=== PATIENT | male | born 1965 | race Caucasian/White ===

== ENCOUNTER 2018-05-18 06:49 | Day surgery (SDC) | payer OTHER, SELFPAY ==
--- NOTE | 2018-05-18 | PATH_ITS ---
[facility] Accession Number: [id number] . 01 Material submitted: . COLON POLYP AT 25 CM . 02 Diagnosis: Colon Polyp at 25 cm: Hyperplastic polyp. MRV/05/19/2018 . 02 Electronically signed: . Janes Arteaga MD, PhD, Pathologist NPI- [id number] . 01 Gross description: . Received one formalin-filled container labeled with the patient's name and labeled colon polyp at 25 cm. The specimen consists of a 0.2 cm portion of tissue. Entirely submitted in one cassette. ([facility]:[id number]) /[facility] . 02 Pathologist provided ICD-10: K63.5 . 02 CPT . 590834 Performed at: 01 [facility] [address] [id number] MD Sriram Colindres MD Phone: [phone] Performed at: 02 [facility] [address] [place], [place] [id number] MD Bartolo Sanchez MD Phone: [phone]
[2018-05-18 07:23] VITALS: BP 132/83; PULSE 51; RESP 12; TEMP 35.9; O2SAT 99
[2018-05-18] MEDS: SODIUM CHLORIDE 0.9% 1,000 ML 200 ML IV (08:00)
--- NOTE | 2018-05-18 08:06 | PM.PREOP ---
Pre-operative Note Interval Note Pre-op Check: Yes History & Physical Reviewed by Physician and Yes Exam Performed Changes: No ASA Class (for procedural sedation): II
[2018-05-18] MEDS: MIDAZOLAM 5 MG/5 ML VIAL IV (08:33)
[2018-05-18] MEDS: fentaNYL 250 MCG/5 ML INJ IV (08:34)
--- NOTE | 2018-05-18 08:47 | PM.OP.ENDO ---
Operative Date/Time/Diagnoses Date of procedure: 05/18/18 Time of procedure: 08:47 Pre-op diagnosis: Screening colonoscopy. This is his 1st exam. Post-op diagnosis: same (One small polyp like lesion at 25 cm) Procedure & Clinicians Study performed: Colonoscopy with cold biopsy Same procedure as scheduled: Yes Indications: Screening due to age Surgeon: Kenny Ba Procedure Notes SCOAP/Timeout: Performed Procedure in detail: The patient was placed in the left lateral decubitus position and underwent IV sedation directed by the surgeon consisting of fentanyl and Versed. Digital exam was remarkable for a firm moderately enlarged prostate without dominant mass. The scope was inserted and advanced through the rectum into the sigmoid, descending, transverse, and ascending colon. There was some tortuosity but otherwise no lesions were seen. The cecum was reached identified by the ileocecal valve and the appendiceal opening. The ileocecal valve was successfully cannulated. The terminal ileum was normal in appearance. The scope was gradually brought out. A Polyp was found at 25 cm from the anal verge. This was small and flat. It may represent a nonneoplastic process. The scope ultimately was retroflexed in the rectum. The appearance was[normal]. The scope was removed and the patient tolerated the procedure well Scope withdrawal time: Almost 17 min Sedation minutes: 33 Findings: polyp (At 25 cm) Specimen(s): other (Polyp) Complications: none Recommendations: Colonscopy in 5 years (Unless polyp is not neoplastic. Then 10 years.) Plan for aftercare: Will send letter regarding pathology Follow up: as needed Disposition: PACU
[2018-05-18 08:50] VITALS: BP 110/75; PULSE 62; RESP 14; TEMP 36.4; O2SAT 99
[2018-05-18 08:55] VITALS: BP 111/74; PULSE 62; RESP 16; TEMP 36.4; O2SAT 98
[2018-05-18 09:03] VITALS: BP 109/73; PULSE 58; RESP 17; TEMP 36.4; O2SAT 99
== END 2018-05-18 09:10 | disposition home or self-care (01) ==
PROVIDERS: Family Provider Family Medicine; PCP Family Medicine; Visit Provider Specialist
PROC: 0DJD8ZZ Inspection of Lower Intestinal Tract, Via Natural or Artificial Opening Endoscopic (ICD-10-PCS; CPT 45378; principal; 2018-05-18 07:45)
DX: Z12.11 Encounter for screening for malignant neoplasm of colon (principal); N40.0 Benign prostatic hyperplasia without lower urinary tract symptoms; E11.9 Type 2 diabetes mellitus without complications; Z79.84 Long term (current) use of oral hypoglycemic drugs; K63.5 Polyp of colon
CPT/HCPCS: 45380; 99152; 99153; J2250; J3010

== ENCOUNTER → 2022-08-12 07:19 | Outpatient (CLI) | payer OTHER, SELFPAY ==
--- NOTE | 2022-08-12 | DI.US.S_ITS ---
PROCEDURE: US EXTREMELY NONVASC UPPER RT INDICATIONS: MASS ON RIGHT SHOULDER TECHNIQUE: Real-time scanning was performed of the left shoulder region , with image documentation. COMPARISON: None. FINDINGS: Imaging finding shows a 1.7 x 1.7 x 0.5 cm mildly hypoechoic solid lesion in the area of palpable abnormality. This may represent a lipoma however I would recommend an MRI through this region with and without intravenous gadolinium for further characterization. IMPRESSION: 1.7 cm ovoid hypoechoic lesion in the area of palpable abnormality in the left shoulder region. Given the imaging findings I would recommend an MRI through this region with and without intravenous gadolinium for further characterization. Dictated by: Jean Marie Desai M.D. on 08/13/2022 at 14:19 Approved by: Jean Marie Desai M.D. on 08/13/2022 at 14:22
== END ==
PROVIDERS: Family Provider Family Medicine; PCP Family Medicine; Referring Provider Family Medicine; Visit Provider Family Medicine
DX: M25.811 Other specified joint disorders, right shoulder (principal)
CPT/HCPCS: 76882

== ENCOUNTER → 2022-09-03 13:42 | Outpatient (CLI) | payer OTHER, SELFPAY ==
--- NOTE | 2022-09-03 | DI.MRI.S_ITS ---
PROCEDURE: MR SHOULDER RT WO/W CON INDICATIONS: RIGHT SHOULDER MASS TECHNIQUE: Noncontrast oblique coronal T1 spin echo and T2 fast spin echo with fat saturation, oblique sagittal T1 spin echo and T2 fast spin echo with fat saturation, axial T1 spin echo and T2 fast spin echo with fat saturation through the shoulder. Post-contrast oblique coronal, oblique sagittal, and axial T1 spin echo with fat saturation through the shoulder. COMPARISON: [facility], US, US EXTREMELY NONVASC UPPER RT, 08/12/2022, 7:25. FINDINGS: Image quality: Excellent. Rotator cuff: There is full-thickness rupture of anterior fibers of distal supraspinatus at its insertion on the humeral head with up to 2.7 cm medial retraction of torn tendon fibers to the level of acromion. Distal infraspinatus tendon is intact. Distal subscapularis tendinosis is seen. Sagittal images demonstrate mild to moderate supraspinatus muscle atrophy. Bones and bursae: No suspicious bone marrow enhancement. No bone marrow contusions or fractures. Moderate acromioclavicular joint osteoarthritic changes are seen with joint space narrowing, subchondral sclerosis and downward osteophyte formation depressing on musculotendinous junction of supraspinatus. Mild to moderate glenohumeral joint osteoarthritic changes are also seen. There is small amount of subacromial subdeltoid bursal fluid. Capsule and soft tissues: Fiducial marker is placed in right lateral lower neck. A lobulated fairly homogeneously T1 hypointense and T2 hyperintense structure is seen within subcutaneous soft tissue of right lateral neck superficial to the muscle fibers and measures up to 1.1 x 1.3 x 2.1 cm in size. After contrast infusion, there is homogeneous enhancement within this lesion. No other area of abnormal enhancement is seen. Signal abnormality and contour irregularity involving superior anterior labrum at 12 to 2 o'clock position is seen suggestive of proximal labral tear. The long head of the biceps tendon demonstrates normal location and morphology. The rotator interval appears normal, without fibrosis. The coracohumeral ligament is normal in thickness. IMPRESSION: 1. 1.1 x 1.3 x 2.1 cm oval enhancing soft tissue mass in subcutaneous soft tissue along right lateral lower neck without underlying muscle involvement. Finding could represent a benign or malignant soft tissue neoplasm suggest excision or biopsy of the mass for more definitive diagnosis. 2. Full-thickness rupture involving anterior fibers of distal supraspinatus at its insertion on the humeral head with up to 2.7 cm medial retraction of torn tendon fibers to the level of acromion. Mild to moderate supraspinatus muscle atrophy. Distal subscapularis tendinosis. 3. No abnormal intraosseous enhancement. No suspicious bony lesion. Moderate acromioclavicular joint osteoarthritis and [id number] glenohumeral joint osteoarthritis. No fracture or dislocation. 4. Suggestion of extensive superior anterior labral tear at 12 to 2 o'clock position. Dictated by: Chava Nice M.D. on 09/04/2022 at 10:43 Approved by: Chava Nice M.D. on 09/04/2022 at 11:08
== END ==
PROVIDERS: Family Provider Family Medicine; PCP Family Medicine; Referring Provider Family Medicine; Visit Provider Family Medicine
DX: R22.1 Localized swelling, mass and lump, neck (principal); M75.121 Complete rotator cuff tear or rupture of right shoulder, not specified as traumatic; M19.011 Primary osteoarthritis, right shoulder; M25.811 Other specified joint disorders, right shoulder
CPT/HCPCS: 73223; A9579

== ENCOUNTER 2022-12-26 10:44 | Day surgery (SDC) | payer OTHER, SELFPAY ==
[2022-12-18 12:28] VITALS: BMI 30.2
--- NOTE | 2022-12-26 | PATH_ITS ---
[facility] Accession Number: [id number] No. of containers..01 Tissue . 01 Material submitted: . neck - RIGHT NECK MASS . 01 Diagnosis: Right Neck, Excision: Fragments of fibrous and mature adipose tissue consistent with lipoma. MRV 12/30/2022 1401 Local . 01 Electronically signed: . Kat Harrell MD, Dermatopathologist NPI- [id number] . 01 Gross description: . The specimen is received in formalin labeled with the patient's name, , and right neck mass, and consists of three yellow to brown soft tissue fragments. The first measures 1.5 x 1.0 x 1.0 cm and is inked blue. The second fragment measures 1.4 x 1.0 x 0.9 cm and is inked green. The third fragment measures 0.8 x 0.7 x 0.5 cm and is inked black. Sectioning reveals a yellow to pink, soft cut surface with no discrete lesions identified. The specimen is submitted entirely in cassettes A1-A2. ([id number]) /FRR 12/27/2022 1342 Local . 01 Pathologist provided ICD-10: D17.9 . 01 CPT . 525708 Specimen Comment: A courtesy copy of this report has been sent to [phone] Performed at: 01 [facility] [address] [place] [id number] MD Sriram Colindres MD Phone: [phone]
[2022-12-26 11:08] VITALS: BP 143/76; PULSE 57; RESP 16; TEMP 36.3; O2SAT 98; BMI 30.2
[2022-12-26] MEDS: LACTATED RINGERS 1,000 ML 42 ML IV (11:18)
--- NOTE | 2022-12-26 12:26 | PM.PREOP ---
Pre-operative Note Interval Note History & Physical reviewed/Exam performed by Physician: Yes Changes to H&P: No
[2022-12-26] MEDS: CEFAZOLIN 2 GM/100 ML PREMIX 100 ML IV (12:42)
[2022-12-26] MEDS: BUPIVACAINE 0.25% (PF) VIAL 30 ML INJ (12:51)
--- NOTE | 2022-12-26 12:59 | SUR.OPER ---
Lateral on a love bag, head on pillow, gel axillary roll in place, bottom leg bent with gel pad under knee to foot, upper leg straight and supported with pillows. Upper arm supported by pillows and secured over bottom arm to padded arm board. Safety belt at hip, tape over blanket lower legs.
[2022-12-26 13:16] VITALS: BP 134/69; PULSE 59; RESP 13; TEMP 36.2; O2SAT 98
[2022-12-26 13:20] VITALS: BP 144/66; PULSE 63; RESP 12; O2SAT 98
[2022-12-26] MEDS: ONDANSETRON 4 MG/2 ML INJ IV (13:23)
[2022-12-26 13:30] VITALS: BP 121/64; PULSE 61; RESP 20; O2SAT 98
--- NOTE | 2022-12-26 13:30 | PM.OP.1 ---
Operative Date/Time/Diagnoses Date of procedure: 12/26/22 Time of procedure: 13:31 Pre-op diagnosis: Right neck mass Post-op diagnosis: same Procedure & Clinicians Procedure: Excision of 2 cm right neck mass Same procedure as scheduled: Yes Indications: 57-year-old man with a enlarging right neck mass. MRI demonstrates enhancement of the mass and is here for diagnostic excision. Surgeon: Angel Xie Operative Notes Findings: Fatty nodule at the base of the right neck Estimated Blood Loss (mL): 5 Procedure in detail: Patient was brought to the operating room placed supine on the table. Bilateral lower extremity compression devices were applied. Sedation was administered by anesthesia. He received 2 g of Ancef prior to skin incision. He was prepped and draped in sterile fashion time-out was performed. A incision was made at the base of the right neck over the palpable mass. The subcutaneous tissue was divided. Just beneath the subcutaneous tissue and above the level of the muscle we encountered a 2 cm fatty growth which was excised in its entirety. Hemostasis was checked. A small metallic clip was placed at the base of the wound. The wound was then closed with Vicryl followed by Monocryl and Dermabond. He tolerated the procedure well emerged from sedation and was transferred to recovery in stable condition Complications: none Post-operative Condition: stable Disposition: same day surgery
== END 2022-12-26 13:47 | disposition home or self-care (01) ==
PROVIDERS: Family Provider Family Medicine; PCP Family Medicine; Referring Provider Surgery; Visit Provider Surgery
PROC: (CPT 21555; principal; 2022-12-26 12:30)
DX: D17.0 Benign lipomatous neoplasm of skin and subcutaneous tissue of head, face and neck (principal)
CPT/HCPCS: 21555; 82962; J0690; J2250; J2405; J3010

== ENCOUNTER → 2025-04-27 07:58 | Outpatient (CLI) | payer OTHER, SELFPAY ==
--- NOTE | 2025-04-27 08:00 | DI.ECHO.S_ITS ---
[facility] : : [id number] : : [place], : : [place] [id number] : : Phone: [phone] Echocardiogram Report + + :Name: PANFILO RODRIGUEZ Study Date: 04/27/2025 Height: 73 in : :[facility] ReadingLocation: Weight: 198 lb : : Gender: Male BSA: 2.1 m2 : :: 1965 Age: 59 yrs BP: 118/75 mmHg: :Reason For Study: S/P CARDIAC ARREST : :Ordering Physician: ROXANA, : :HOSEA Magaña Performed By: Eliceo Senior : :Referring: HOSEA SCHMIDT : + + Interpretation Summary 1. The left ventricular contractility is mildly compromised. Estimate ejection fraction is approximately 40 to 45% with mild hypokinesis of the lateral segment. No LVH. Normal diastolic function. 2. The right ventricular contractility is normal. 3. The left ventricular cavity is mildly dilated with LVEDD of 6.1 cm. All other cardiac chambers are of normal size. 4. Trace to mild mitral regurgitation. 5. Mild aortic insufficiency. 6. Trace to mild tricuspid regurgitation with estimated pulmonary systolic artery pressures of 31 mmHg. 7. No obvious intracardiac shunts. 8. No hemodynamically significant pericardial effusion. 9. Low right-sided filling pressures. Conclusion: Mildly compromised left ventricular systolic function with trace to mild valvular insufficiencies. When compared with previous echocardiogram, there is significant improvement of the left ventricular contractility. Procedure: A two-dimensional transthoracic echocardiogram with color flow and Doppler was performed. The study quality was technically good. Comparison is made with the echocardiogram of 02/22/25. The patient was in a bradycardic rhythm during the exam. Left Ventricle: The left ventricle is mildly dilated. There is normal left ventricular wall thickness. There is no ventricular septal defect visualized. The ejection fraction is estimated to be 40-45%. There are regional wall motion abnormalities as specified. Diastolic parameters suggest probable normal left ventricular diastolic function and normal filling pressures. Right Ventricle: The right ventricle is normal in size and function. Atria: The left atrial size is normal. The right atrium is normal in size. There is no Doppler evidence for an interatrial shunt. Mitral Valve: The mitral valve is normal in structure and function. There is trace mitral regurgitation. Aortic Valve: The aortic valve is trileaflet. The aortic valve opens well. There is mild aortic regurgitation. Tricuspid Valve: The tricuspid valve leaflets are thin and pliable. There is mild tricuspid regurgitation. The right ventricular systolic pressure is estimated to be at least 31 mmHg based on an estimated right atrial pressure of 3 mm Hg. Pulmonic Valve: The pulmonic valve leaflets are thin and pliable; valve motion is normal. There is no pulmonic valvular regurgitation. Great Vessels: The aortic root is normal size. The dimensions of the ascending aorta are normal. The pulmonary artery is normal size. The IVC is of normal diameter and collapses greater than 50% with a sniff. This suggests a low right atrial pressure of 3 mm Hg. Pericardium/ Pleura There is no pericardial effusion. There is no pleural effusion. MMode/2D Measurements & Calculations LVIDd: 6.1 cm AoV Openin.2 cm LVIDs: 4.6 cm LVOT diam: 2.5 cm IVSd: 0.80 cm Ao root diam: 3.8 cm LVPWd: 0.91 cm asc Aorta Diam: 3.3 cm LV hernandez. diameter/BSA (cm/m^2): 2.9 Ao Arch Diam (Prox Trans): 1.8 cm LV sys. diameter/BSA (cm/m^2): 2.1 FS: 24.9 % EPSS: 1.1 cm LA A2 area: 20.0 cm2 RA long axis: 5.3 cm LA A4 area: 22.5 cm2 RA area: 20.4 cm2 LA length (vol): 5.6 cm RA vol: 66.1 ml LA vol: 67.7 ml RA : 30.9 ml/m2 LA vol index: 31.6 ml/m2 RVD1 (basal): 3.9 cm IVC diam: 1.3 cm RVD2 (mid): 3.6 cm TAPSE: 2.4 cm Doppler Measurements & Calculations Ao V2 max: 98.9 cm/sec LVOT Max Refugio: 89.0 cm/sec Ao V2 mean: 68.2 cm/sec LV V1 max P.2 mmHg Ao V2 VTI: 23.1 cm LV V1 VTI: 18.5 cm Ao max P.9 mmHg Ao mean P.1 mmHg STEPHANIE(I,D): 4.0 cm2 AI P1/2t: 797.0 msec STEPHANIE(V,D): 4.5 cm2 AI dec slope: 168.7 cm/sec2 STEPHANIE indexed to BSA (cm^2/m^2): 1.9 sev ratio: 0.80 MV E max refugio: 43.3 cm/sec MV dec time: 0.27 sec MV A max refugio: 34.1 cm/sec MV E/A: 1.3 Med Peak E' Refugio: 5.8 cm/sec E/E' med: 7.5 Lat Peak E' Refugio: 4.7 cm/sec E/E' lat: 9.3 E/e' average: 8.4 TR max refugio: 266.4 cm/sec PA V2 max: 87.4 cm/sec TR max P.4 mmHg PA V2 mean: 57.4 cm/sec PA mean P.5 mmHg PA pr(Accel): 46.5 mmHg SV(LVOT): 92.2 ml Reading Physician:AM
== END ==
PROVIDERS: Family Provider Family Medicine; PCP Family Medicine; Referring Provider Family Medicine; Visit Provider Family Medicine
DX: I08.2 Rheumatic disorders of both aortic and tricuspid valves (principal); I50.21 Acute systolic (congestive) heart failure; I46.9 Cardiac arrest, cause unspecified; I49.01 Ventricular fibrillation
CPT/HCPCS: 93306

== ENCOUNTER 2025-06-27 09:45 | Outpatient (RCR) | payer OTHER, SELFPAY ==
[2025-03-30 12:39] VITALS: BP 107/70; PULSE 61; O2SAT 96
--- NOTE | 2025-03-31 16:34 | PT.OIE ---
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 [place], [address] Email: [email or web address] Sean Howard MD Attending Provider Non-Staff Referring Provider Specialty: Physical Medicine and Rehab Address: [address] [place] [address], [facility] [address], [place], [address] Email: Physical Therapy Initial Evaluation PT-OP-A Visit Information Start: 03/31/25 12:38 Freq: Status: Active Protocol: Document 03/30/25 12:39 KW (Rec: 03/31/25 13:01 KW Laptop) Out-Patient Physical Therapy Visit Information Visit Information Visit Type Initial Evaluation Visit Note 15 min MAX for year. Has OT, Speech, Cardiac Rehab as well Visit Start Time 09:00 Visit Stop Time 09:45 Visit Number 1 Evaluation Information Evaluation Date 03/30/25 Precautions Precautions Cardiac, 3 month heart monitor abdominal binder to support Blood Pressure cortical blindness PT-OP-B Current Condition Start: 03/31/25 12:38 Freq: Status: Active Protocol: Document 03/30/25 12:39 KW (Rec: 03/31/25 13:01 KW Laptop) Current Condition History of Current Condition Onset Date 02/22/2025 Current Complaints balance deficits, vision impairment, cognitive function , cardiac status History of Current patient suffered UT 02/22/25, bystander CPR by RN, Condition underwent 3 stents, left ADA, sustained anoxic brain injury, cortical blindness. currently wearing a vehicle monitor technician for 3 months, attending cardiac rehab, OT, Speech. Underwent 3 of 4 weeks of inpatient rehab stay at [facility]. He has since removed home with his supportive , Theresa. Supportive family in the area. 2 steps to enter 1 story home. 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 PT-OP-D Balance Start: 03/31/25 12:38 Freq: Status: Active Protocol: Document 03/30/25 12:39 KW (Rec: 03/31/25 13:01 KW Laptop) OP-PT Balance Assessment Sitting Balance Static Sitting Normal Balance Ability Dynamic Sitting Good Balance Ability Standing Balance Static Standing Good Balance Ability Dynamic Standing Fair Balance Ability Erazo Balance Assessment Evaluation Sitting to Standing Independent w/Hands Ability Unsupported Stance Supervision- 2 minutes Sitting Unsupported, Supervision- 2 minutes Feet on Floor Standing to Sitting Assist, Control w/Hands Ability Transfer Ability Supervision, Verbal Cues Unsupported Stance- 3 seconds Eyes Closed Unsupported Stance- Independent, <30 seconds Eyes Open Reaching Forward Safely, 2 inches Standing Pick- Up Object From Within 2 inches, Unable Floor Look Behind Shoulder Turns Sideways Only - Standing Turning 360 Degrees Supervision/Verbal Cues Unsupported Stance, 2 Steps w/Minimum Assist Alternating Feet on Stair Unsupported Tandem Assist to Step-15 seconds Stance Unilateral Leg Lifts Leg/Unable to Hold Stance Total Score Erazo Total Score ( 28 out of 56 points) Erazo Impairment 40 to 59% Impaired (Score 23-33) Rating Liu Fall Scale Copyright Permission PT-OP-E Functional Tests Start: 03/31/25 12:38 Freq: Status: Active Protocol: Document 03/30/25 12:39 KW (Rec: 03/31/25 13:01 KW Laptop) Functional Tests 6 Minute Walk Test Distance 60 M Device Used none 10 Meter Walk Test Distance 10 M Device Used none PT-OP-F Manual Assessment Start: 03/31/25 12:38 Freq: Status: Active Protocol: Document 03/30/25 12:39 KW (Rec: 03/31/25 13:01 KW Laptop) Manual Assessments Soft Tissue Assessment Soft Tissue Mobility NT Assessment Joint Mobility Assessment Joint Mobility WNL x 4 Assessment PT-OP-G Mobility & Gait Start: 03/31/25 12:38 Freq: Status: Active Protocol: Document 03/30/25 12:39 KW (Rec: 03/31/25 13:01 KW Laptop) OP Mobility Evaluation Bed Mobility Rolling Indep Supine to and from supervision Sit Transfers Sit to Stand SBA Bed to Chair SBA Transfers Car Transfers CGA Floor Transfers Min A Functional Movements Lifting and Carrying NT Squats CGA Running Assessment NA due to cardiac precautions OP Gait Assessment Gait Gait Assistance Standby Assistance Required: Distance (Feet) 1,000 Assistive Devices Assistive Device None,Gait Belt Gait Deviations General Gait Pattern Decreased Feet Clearance Factors Limiting Gait Function Factors Limiting Poor Balance Gait Function Comments Gait Comments vision status significant limitation, CGA for curbs, uneven terrain Stair Climbing Evaluation Evaluation Level of Assist On Contact Guard Assistance Stairs Devices Stair Climbing None Assistive Devices Comments Stair Climbing step over gait, cues for foot placement Comments PT-OP-H Neuro Start: 03/31/25 12:38 Freq: Status: Active Protocol: Document 03/30/25 12:39 KW (Rec: 03/31/25 13:01 KW Laptop) Muscle Tone Tone Assessment UE Flexor Tone Normal Description Extensor Tone Normal Description Muscle Tone Comments Normal B LE as well Vital Signs Pulse 1 Pulse at Rest (bpm) 61 Pulse Assessment Pulse Ox/Monitor Method Blood Pressure Sitting Blood Pressure (90/ 107/70 60-120/80 mmHg) Blood Pressure Automatic Cuff Source Oxygen Pulse Oximetry at 96 Rest (%) (95-100 %) Oxygen Delivery Room Air Method PT-OP-J Posture/Palpation/Skin Start: 03/31/25 12:38 Freq: Status: Active Protocol: Document 03/30/25 12:39 KW (Rec: 03/31/25 13:01 KW Laptop) Posture Evaluation Comments Posture Comments WNL noted low tone, facial, new mouth open breathing pattern PT-OP-M Strength Start: 03/31/25 12:38 Freq: Status: Active Protocol: Document 03/30/25 12:39 KW (Rec: 03/31/25 13:01 KW Laptop) Shoulder Strength Shoulder Manual Muscle Testing Left Flexion 4 Good Extension 4 Good Abduction (C5) 4 Good Adduction 4 Good External Rotation 4 Good Internal Rotation 4 Good Horizontal Abduction 4 Good Horizontal Adduction 4 Good Comments R UE as well Hip Strength Hip Manual Muscle Testing Left Flexion (L2) 4 Good Extension (S1) 4 Good Abduction 4 Good Adduction 4 Good External Rotation 4 Good Internal Rotation 4 Good Comments Right LE as well PT-OP-Q Treatments Start: 03/31/25 12:38 Freq: Status: Active Protocol: Document 03/30/25 12:39 KW (Rec: 03/31/25 13:01 KW Laptop) Neuro Re-Education Treatment Balance Activities HEP corner balance Details standing corner balance with chair in front Surface flat Reps/Duration 1 min each position Comments handout issued Semi Tandem narrow WALDEMAR Self-Care/Home Management Treatment Education Patient Education Body Mechanics,Fall Risk,Home Exercise Program,Joint Protection,Posture,Safety Other Education shoe wear for ideal balance. NO slip on PT-OP-T Assessment and Plan Start: 03/31/25 12:38 Freq: Status: Active Protocol: Document 03/30/25 12:39 KW (Rec: 03/31/25 13:01 KW Laptop) Physical Therapy Assessment Rehab Potential Rehabilitation Good Potential Evaluation Complexity Number of Personal 3 or More Factors/ Comorbidities Number of Body 4 or More Systems Impaired Clinical Unstable Presentation at Evaluation Impairments Impairments Balance,Functional Activities,Functional Mobility,Gait Goals Three Impairment decreased LE strength Short Term Goal (STG patient with improved LE strength 4+, able to bridge, ) participate in leg press STG Duration 6 weeks Two Impairment impaired gait Short Term Goal (STG patient ambulates with trekking pole outdoors, SBA ) STG Duration 6 weeks One Impairment Lack of HEP Short Term Goal ([facility] patient and family demonstrate indep HEP balance in ) corner 10 min daily Assessment Summary Assessment 59 yo male with UT resulting in anoxic brain injury. Limitations for PT include Balance, LE strength, transfers, gait. patient will benefit from skilled PT to address deficits and maximize independent function. Barriers to Rx: complex medical, including cardiac Physical Therapy Plan Frequency and Duration Frequency of 2x/Week Treatment Plan of Care Start 03/30/25 Date Plan of Care End 06/30/25 Date Therapeutic Interventions Therapeutic Balance Training,Gait Training,Home Exercise Program, Interventions Manual Therapy,Neuromuscular Re-education,Patient/ Caregiver Education,Self-Care/Home Management, Therapeutic Activities,Therapeutic Exercises Modalities Cold Pack/Ice Massage,Electric Stimulation,Hot Packs, Ultrasound Next Visit Focus/Plan Next Note Type Treatment Note Next Visit Plan nu step warm up with monitoring pre post vitals, introduce RPE scale balance training LE shuttle HEP instruction: bridging, clamshells, UE band pulls
--- NOTE | 2025-03-31 16:35 | PT.OPPOC ---
Physical, Occupational & Speech Therapy At 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 [place], [address] Email: [email or web address] Sean Howard MD Attending Provider Non-Staff Referring Provider Specialty: Physical Medicine and Rehab Address: [address] [facility], [address], [place], [address] Email: Plan Of Care PT-OP-B Current Condition Start: 03/31/25 12:38 Freq: Status: Active Protocol: Document 03/30/25 12:39 KW (Rec: 03/31/25 13:01 KW Laptop) Current Condition History of Current Condition Onset Date 02/22/2025 Current Complaints balance deficits, vision impairment, cognitive function , cardiac status History of Current patient suffered MS 02/22/25, bystander CPR by RN, Condition underwent 3 stents, left ADA, sustained anoxic brain injury, cortical blindness. 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 Underwent 3 of 4 weeks of inpatient rehab stay at [facility]. He has since removed home with his supportive , Theresa. Supportive family in the area. 2 steps to enter 1 story home. 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 PT-OP-T Assessment and Plan Start: 03/31/25 12:38 Freq: Status: Active Protocol: Document 03/30/25 12:39 KW (Rec: 03/31/25 13:01 KW Laptop) Physical Therapy Assessment Rehab Potential Rehabilitation Good Potential Evaluation Complexity Number of Personal 3 or More Factors/ Comorbidities Number of Body 4 or More Systems Impaired Clinical Unstable Presentation at Evaluation Impairments Impairments Balance,Functional Activities,Functional Mobility,Gait Goals Three Impairment decreased LE strength Short Term Goal (STG patient with improved LE strength 4+, able to bridge, ) participate in leg press STG Duration 6 weeks Two Impairment impaired gait Short Term Goal (STG patient ambulates with trekking pole outdoors, SBA ) STG Duration 6 weeks One Impairment Lack of HEP Short Term Goal (STG patient and family demonstrate indep HEP balance in ) corner 10 min daily Assessment Summary Assessment 59 yo male with MS resulting in anoxic brain injury. Limitations for PT include Balance, LE strength, transfers, gait. patient will benefit from skilled PT to address deficits and maximize independent function. Barriers to Rx: complex medical, including cardiac Physical Therapy Plan Frequency and Duration Frequency of 2x/Week Treatment Plan of Care Start 03/30/25 Date Plan of Care End 06/30/25 Date Therapeutic Interventions Therapeutic Balance Training,Gait Training,Home Exercise Program, Interventions Manual Therapy,Neuromuscular Re-education,Patient/ Caregiver Education,Self-Care/Home Management, Therapeutic Activities,Therapeutic Exercises Modalities Cold Pack/Ice Massage,Electric Stimulation,Hot Packs, Ultrasound Next Visit Focus/Plan Next Note Type Treatment Note Next Visit Plan nu step warm up with monitoring pre post vitals, introduce RPE scale balance training LE shuttle HEP instruction: bridging, clamshells, UE band pulls Plan of Care Dates Plan of Care Start Date 03/30/25 Plan of Care End Date 06/30/25 Electronically Signed by: Wen Winters, PT 03/31/25 2899 If you are in agreement with this Plan of Care, please return a signed and dated copy. I have reviewed this Plan of Care and certify that the skilled therapy services above are required to meet the patient?s needs. Physician Signature Date Printed Name and Credentials Clinical Instructor Signature Printed Name and Credentials
--- NOTE | 2025-04-06 16:16 | PT.OTN ---
Current Diagnoses Cortical blindness, unspecified side of brain (04/06/25) Severe hypoxic ischemic encephalopathy [HIE] (04/06/25) Other reduced mobility (04/06/25) Other specified health status (04/06/25) Physical Therapy Treatment Note PT-OP-A Visit Information Start: 03/31/25 12:38 Freq: Status: Active Protocol: Document 04/06/25 16:08 KW (Rec: 04/06/25 16:16 KW Laptop) Out-Patient Physical Therapy Visit Information Visit Information Visit Type Treatment Note Visit Note O2 sATS 100% hr: 55-70 bp 114/68 Visit Start Time 13:45 Visit Stop Time 14:30 Visit Number 2 Evaluation Information Evaluation Date 03/30/25 Precautions Precautions Cardiac, 3 month heart monitor abdominal binder to support Blood Pressure cortical blindness Beta joe PT-OP-B Current Condition Start: 03/31/25 12:38 Freq: Status: Active Protocol: Document 03/30/25 12:39 KW (Rec: 03/31/25 13:01 KW Laptop) Current Condition History of Current Condition Onset Date 02/22/2025 Current Complaints balance deficits, vision impairment, cognitive function , cardiac status History of Current patient suffered [place] 02/22/25, bystander CPR by RN, Condition underwent 3 stents, left ADA, sustained anoxic brain injury, cortical blindness. currently wearing a stretching machine operator for 3 months, attending cardiac rehab, OT, Speech. Underwent 3 of 4 weeks of inpatient rehab stay at [facility]. He has since removed home with his supportive , Theresa. Supportive family in the area. 2 steps to enter 1 story home. 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 PT-OP-C Subjective Start: 03/31/25 12:38 Freq: Status: Active Protocol: Document 04/06/25 16:08 KW (Rec: 04/06/25 16:16 KW Laptop) OP-PT Subjective Patient Comments Patient Comments daily walks with spouse spouse purchased a Nu step for home has not heard from Cardiac Rehab for start date PT-OP-D Balance Start: 03/31/25 12:38 Freq: Status: Active Protocol: Document 03/30/25 12:39 KW (Rec: 03/31/25 13:01 KW Laptop) OP-PT Balance Assessment Sitting Balance Static Sitting Normal Balance Ability Dynamic Sitting Good Balance Ability Standing Balance Static Standing Good Balance Ability Dynamic Standing Fair Balance Ability Erazo Balance Assessment Evaluation Sitting to Standing Independent w/Hands Ability Unsupported Stance Supervision- 2 minutes Sitting Unsupported, Supervision- 2 minutes Feet on Floor Standing to Sitting Assist, Control w/Hands Ability Transfer Ability Supervision, Verbal Cues Unsupported Stance- 3 seconds Eyes Closed Unsupported Stance- Independent, <30 seconds Eyes Open Reaching Forward Safely, 2 inches Standing Pick- Up Object From Within 2 inches, Unable Floor Look Behind Shoulder Turns Sideways Only - Standing Turning 360 Degrees Supervision/Verbal Cues Unsupported Stance, 2 Steps w/Minimum Assist Alternating Feet on Stair Unsupported Tandem Assist to Step-15 seconds Stance Unilateral Leg Lifts Leg/Unable to Hold Stance Total Score Erazo Total Score ( 28 out of 56 points) Erazo Impairment 40 to 59% Impaired (Score 23-33) Rating Liu Fall Scale Copyright Permission PT-OP-E Functional Tests Start: 03/31/25 12:38 Freq: Status: Active Protocol: Document 03/30/25 12:39 KW (Rec: 03/31/25 13:01 KW Laptop) Functional Tests 6 Minute Walk Test Distance 60 M Device Used none 10 Meter Walk Test Distance 10 M Device Used none PT-OP-F Manual Assessment Start: 03/31/25 12:38 Freq: Status: Active Protocol: Document 03/30/25 12:39 KW (Rec: 03/31/25 13:01 KW Laptop) Manual Assessments Soft Tissue Assessment Soft Tissue Mobility NT Assessment Joint Mobility Assessment Joint Mobility WNL x 4 Assessment PT-OP-G Mobility & Gait Start: 03/31/25 12:38 Freq: Status: Active Protocol: Document 03/30/25 12:39 KW (Rec: 03/31/25 13:01 KW Laptop) OP Mobility Evaluation Bed Mobility Rolling Indep Supine to and from supervision Sit Transfers Sit to Stand SBA Bed to Chair SBA Transfers Car Transfers CGA Floor Transfers Min A Functional Movements Lifting and Carrying NT Squats CGA Running Assessment NA due to cardiac precautions OP Gait Assessment Gait Gait Assistance Standby Assistance Required: Distance (Feet) 1,000 Assistive Devices Assistive Device None,Gait Belt Gait Deviations General Gait Pattern Decreased Feet Clearance Factors Limiting Gait Function Factors Limiting Poor Balance Gait Function Comments Gait Comments vision status significant limitation, CGA for curbs, uneven terrain Stair Climbing Evaluation Evaluation Level of Assist On Contact Guard Assistance Stairs Devices Stair Climbing None Assistive Devices Comments Stair Climbing step over gait, cues for foot placement Comments PT-OP-H Neuro Start: 03/31/25 12:38 Freq: Status: Active Protocol: Document 03/30/25 12:39 KW (Rec: 03/31/25 13:01 KW Laptop) Muscle Tone Tone Assessment UE Flexor Tone Normal Description Extensor Tone Normal Description Muscle Tone Comments Normal B LE as well Vital Signs Pulse 1 Pulse at Rest (bpm) 61 Pulse Assessment Pulse Ox/Monitor Method Blood Pressure Sitting Blood Pressure (90/ 107/70 60-120/80 mmHg) Blood Pressure Automatic Cuff Source Oxygen Pulse Oximetry at 96 Rest (%) (95-100 %) Oxygen Delivery Room Air Method PT-OP-J Posture/Palpation/Skin Start: 03/31/25 12:38 Freq: Status: Active Protocol: Document 03/30/25 12:39 KW (Rec: 03/31/25 13:01 KW Laptop) Posture Evaluation Comments Posture Comments WNL noted low tone, facial, new mouth open breathing pattern PT-OP-M Strength Start: 03/31/25 12:38 Freq: Status: Active Protocol: Document 03/30/25 12:39 KW (Rec: 03/31/25 13:01 KW Laptop) Shoulder Strength Shoulder Manual Muscle Testing Left Flexion 4 Good Extension 4 Good Abduction (C5) 4 Good Adduction 4 Good External Rotation 4 Good Internal Rotation 4 Good Horizontal Abduction 4 Good Horizontal Adduction 4 Good Comments R UE as well Hip Strength Hip Manual Muscle Testing Left Flexion (L2) 4 Good Extension (S1) 4 Good Abduction 4 Good Adduction 4 Good External Rotation 4 Good Internal Rotation 4 Good Comments Right LE as well PT-OP-Q Treatments Start: 03/31/25 12:38 Freq: Status: Active Protocol: Document 04/06/25 16:08 KW (Rec: 04/06/25 16:16 KW Laptop) Cardio Equipment Recumbent Stepper (Sci-Fit) Duration (Minutes) 10 Resistance 1 Other RPE, talk test 03/14 Gym Equipment Shuttle Recovery Squats Details B squats 67#, single leg 37# 25# jumps Reps/Time 2 x 10 each Therapeutic Exercises Sitting Exercises sit to stand Sitting Exercise sit to stand, without use of hands Name Reps/Minutes x 10 Standing Exercises gastroc stretch Standing Exercise B gastroc stretch with MORENA wedge Name Gait Training Gait Activity stairs Description grand stair case in lobby Comments cues for pacing, pursed lip breathing and foot placement Neuro Re-Education Treatment Balance Activities hurdles Details stepping over anterior/lateral HEP corner balance Details // bars. BOSU, 4 mat wt shift, head turns Self-Care/Home Management Treatment Education Patient Education Body Mechanics,Fall Risk,Home Exercise Program,Joint Protection,Posture,Safety Other Education HOKA shoes, re-laced to avoid top of foot irritation as well as heel lock lacing instructed in campus walk around hospital on days that he has speech therapy PT-OP-T Assessment and Plan Start: 03/31/25 12:38 Freq: Status: Active Protocol: Document 04/06/25 16:08 KW (Rec: 04/06/25 16:16 KW Laptop) Physical Therapy Assessment Rehab Potential Rehabilitation Good Potential Evaluation Complexity Number of Personal 3 or More Factors/ Comorbidities Number of Body 4 or More Systems Impaired Clinical Unstable Presentation at Evaluation Impairments Impairments Balance,Functional Activities,Functional Mobility,Gait Goals Three Impairment decreased LE strength Short Term Goal (STG patient with improved LE strength 4+, able to bridge, ) participate in leg press STG Duration 6 weeks Two Impairment impaired gait Short Term Goal (STG patient ambulates with trekking pole outdoors, SBA ) STG Duration 6 weeks One Impairment Lack of HEP Short Term Goal ([facility] patient and family demonstrate indep HEP balance in ) corner 10 min daily Assessment Summary Assessment 59 yo male with NV resulting in anoxic brain injury. Limitations for PT include Balance, LE strength, transfers, gait. patient will benefit from skilled PT to address deficits and maximize independent function. Barriers to Rx: complex medical, including cardiac Physical Therapy Plan Frequency and Duration Frequency of 2x/Week Treatment Plan of Care Start 03/30/25 Date Plan of Care End 06/30/25 Date Therapeutic Interventions Therapeutic Balance Training,Gait Training,Home Exercise Program, Interventions Manual Therapy,Neuromuscular Re-education,Patient/ Caregiver Education,Self-Care/Home Management, Therapeutic Activities,Therapeutic Exercises Modalities Cold Pack/Ice Massage,Electric Stimulation,Hot Packs, Ultrasound Next Visit Focus/Plan Next Note Type Treatment Note Next Visit Plan nu step warm up with monitoring pre post vitals, introduce RPE scale balance training LE shuttle HEP instruction: bridging, clamshells, UE band pulls
--- NOTE | 2025-04-12 10:53 | PT.OTN ---
Current Diagnoses Cortical blindness, unspecified side of brain (04/12/25) Severe hypoxic ischemic encephalopathy [HIE] (04/12/25) Other reduced mobility (04/12/25) Other specified health status (04/12/25) Physical Therapy Treatment Note PT-OP-A Visit Information Start: 03/31/25 12:38 Freq: Status: Active Protocol: Document 04/12/25 09:56 KW (Rec: 04/12/25 10:53 KW Laptop) Out-Patient Physical Therapy Visit Information Visit Information Visit Type Treatment Note Visit Note O2 sATS 100% hr: 59 bp 109/71 Visit Start Time 09:45 Visit Stop Time 10:30 Visit Number 3 Evaluation Information Evaluation Date 03/30/25 Precautions Precautions Cardiac, 3 month heart monitor abdominal binder to support Blood Pressure cortical blindness Beta joe PT-OP-B Current Condition Start: 03/31/25 12:38 Freq: Status: Active Protocol: Document 04/12/25 09:56 KW (Rec: 04/12/25 10:53 KW Laptop) Current Condition History of Current Condition Onset Date 02/22/2025 Current Complaints balance deficits, vision impairment, cognitive function , cardiac status History of Current patient suffered [place] 02/22/25, bystander CPR by RN, Condition underwent 3 stents, left ADA, sustained anoxic brain injury, cortical blindness. currently wearing a rn cardiac cath for 3 months, attending cardiac rehab, OT, Speech. Underwent 3 of 4 weeks of inpatient rehab stay at [facility]. He has since removed home with his supportive , Theresa. Supportive family in the area. 2 steps to enter 1 story home. 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 PT-OP-C Subjective Start: 03/31/25 12:38 Freq: Status: Active Protocol: Document 04/12/25 09:56 KW (Rec: 04/12/25 10:53 KW Laptop) OP-PT Subjective Patient Comments Patient Comments daily walks with spouse spouse purchased a Nu step for home, has had two workouts already. documenting HR, BP has not heard from Cardiac Rehab for start date had a fall on a grass hill, felt like he was being pulled to the left. PT-OP-D Balance Start: 03/31/25 12:38 Freq: Status: Active Protocol: Document 03/30/25 12:39 KW (Rec: 03/31/25 13:01 KW Laptop) OP-PT Balance Assessment Sitting Balance Static Sitting Normal Balance Ability Dynamic Sitting Good Balance Ability Standing Balance Static Standing Good Balance Ability Dynamic Standing Fair Balance Ability Erazo Balance Assessment Evaluation Sitting to Standing Independent w/Hands Ability Unsupported Stance Supervision- 2 minutes Sitting Unsupported, Supervision- 2 minutes Feet on Floor Standing to Sitting Assist, Control w/Hands Ability Transfer Ability Supervision, Verbal Cues Unsupported Stance- 3 seconds Eyes Closed Unsupported Stance- Independent, <30 seconds Eyes Open Reaching Forward Safely, 2 inches Standing Pick- Up Object From Within 2 inches, Unable Floor Look Behind Shoulder Turns Sideways Only - Standing Turning 360 Degrees Supervision/Verbal Cues Unsupported Stance, 2 Steps w/Minimum Assist Alternating Feet on Stair Unsupported Tandem Assist to Step-15 seconds Stance Unilateral Leg Lifts Leg/Unable to Hold Stance Total Score Erazo Total Score ( 28 out of 56 points) Erazo Impairment 40 to 59% Impaired (Score 23-33) Rating Liu Fall Scale Copyright Permission PT-OP-E Functional Tests Start: 03/31/25 12:38 Freq: Status: Active Protocol: Document 03/30/25 12:39 KW (Rec: 03/31/25 13:01 KW Laptop) Functional Tests 6 Minute Walk Test Distance 60 M Device Used none 10 Meter Walk Test Distance 10 M Device Used none PT-OP-F Manual Assessment Start: 03/31/25 12:38 Freq: Status: Active Protocol: Document 03/30/25 12:39 KW (Rec: 03/31/25 13:01 KW Laptop) Manual Assessments Soft Tissue Assessment Soft Tissue Mobility NT Assessment Joint Mobility Assessment Joint Mobility WNL x 4 Assessment PT-OP-G Mobility & Gait Start: 03/31/25 12:38 Freq: Status: Active Protocol: Document 03/30/25 12:39 KW (Rec: 03/31/25 13:01 KW Laptop) OP Mobility Evaluation Bed Mobility Rolling Indep Supine to and from supervision Sit Transfers Sit to Stand SBA Bed to Chair SBA Transfers Car Transfers CGA Floor Transfers Min A Functional Movements Lifting and Carrying NT Squats CGA Running Assessment NA due to cardiac precautions OP Gait Assessment Gait Gait Assistance Standby Assistance Required: Distance (Feet) 1,000 Assistive Devices Assistive Device None,Gait Belt Gait Deviations General Gait Pattern Decreased Feet Clearance Factors Limiting Gait Function Factors Limiting Poor Balance Gait Function Comments Gait Comments vision status significant limitation, CGA for curbs, uneven terrain Stair Climbing Evaluation Evaluation Level of Assist On Contact Guard Assistance Stairs Devices Stair Climbing None Assistive Devices Comments Stair Climbing step over gait, cues for foot placement Comments PT-OP-H Neuro Start: 03/31/25 12:38 Freq: Status: Active Protocol: Document 03/30/25 12:39 KW (Rec: 03/31/25 13:01 KW Laptop) Muscle Tone Tone Assessment UE Flexor Tone Normal Description Extensor Tone Normal Description Muscle Tone Comments Normal B LE as well Vital Signs Pulse 1 Pulse at Rest (bpm) 61 Pulse Assessment Pulse Ox/Monitor Method Blood Pressure Sitting Blood Pressure (90/ 107/70 60-120/80 mmHg) Blood Pressure Automatic Cuff Source Oxygen Pulse Oximetry at 96 Rest (%) (95-100 %) Oxygen Delivery Room Air Method PT-OP-J Posture/Palpation/Skin Start: 03/31/25 12:38 Freq: Status: Active Protocol: Document 03/30/25 12:39 KW (Rec: 03/31/25 13:01 KW Laptop) Posture Evaluation Comments Posture Comments WNL noted low tone, facial, new mouth open breathing pattern PT-OP-M Strength Start: 03/31/25 12:38 Freq: Status: Active Protocol: Document 03/30/25 12:39 KW (Rec: 03/31/25 13:01 KW Laptop) Shoulder Strength Shoulder Manual Muscle Testing Left Flexion 4 Good Extension 4 Good Abduction (C5) 4 Good Adduction 4 Good External Rotation 4 Good Internal Rotation 4 Good Horizontal Abduction 4 Good Horizontal Adduction 4 Good Comments R UE as well Hip Strength Hip Manual Muscle Testing Left Flexion (L2) 4 Good Extension (S1) 4 Good Abduction 4 Good Adduction 4 Good External Rotation 4 Good Internal Rotation 4 Good Comments Right LE as well PT-OP-Q Treatments Start: 03/31/25 12:38 Freq: Status: Active Protocol: Document 04/12/25 09:56 KW (Rec: 04/12/25 10:53 KW Laptop) Cardio Equipment Recumbent Stepper (Sci-Fit) Duration (Minutes) 10 Resistance 1 Other RPE, talk test 6/10 Gym Equipment Shuttle Recovery Squats Details B squats 67#, single leg 37# 25# jumps Reps/Time 2 x 10 each Therapeutic Exercises Sitting Exercises sit to stand Sitting Exercise sit to stand, without use of hands Name Reps/Minutes x 10 Standing Exercises gastroc stretch Standing Exercise B gastroc stretch with MORENA wedge Name Neuro Re-Education Treatment Balance Activities hurdles Details stepping over anterior/lateral HEP corner balance Details // bars. BOSU, 4 mat wt shift, head turns Self-Care/Home Management Treatment Education Patient Education Body Mechanics,Fall Risk,Home Exercise Program,Joint Protection,Posture,Safety Other Education HOKA shoes, re-laced to avoid top of foot irritation as well as heel lock lacing instructed in campus walk around hospital on days that he has speech therapy PT-OP-T Assessment and Plan Start: 03/31/25 12:38 Freq: Status: Active Protocol: Document 04/12/25 09:56 KW (Rec: 04/12/25 10:53 KW Laptop) Physical Therapy Assessment Rehab Potential Rehabilitation Good Potential Evaluation Complexity Number of Personal 3 or More Factors/ Comorbidities Number of Body 4 or More Systems Impaired Clinical Unstable Presentation at Evaluation Impairments Impairments Balance,Functional Activities,Functional Mobility,Gait Goals Three Impairment decreased LE strength Short Term Goal (STG patient with improved LE strength 4+, able to bridge, ) participate in leg press STG Duration 6 weeks Two Impairment impaired gait Short Term Goal (STG patient ambulates with trekking pole outdoors, SBA ) STG Duration 6 weeks One Impairment Lack of HEP Short Term Goal ([facility] patient and family demonstrate indep HEP balance in ) corner 10 min daily Assessment Summary Assessment concern over fall feeling pull to left. Facial CN symmetrical, symmetrical strength B UE/LE educated patient and spouse re: signs of TIA/CVA Physical Therapy Plan Frequency and Duration Frequency of 2x/Week Treatment Plan of Care Start 03/30/25 Date Plan of Care End 06/30/25 Date Therapeutic Interventions Therapeutic Balance Training,Gait Training,Home Exercise Program, Interventions Manual Therapy,Neuromuscular Re-education,Patient/ Caregiver Education,Self-Care/Home Management, Therapeutic Activities,Therapeutic Exercises Modalities Cold Pack/Ice Massage,Electric Stimulation,Hot Packs, Ultrasound Next Visit Focus/Plan Next Note Type Treatment Note Next Visit Plan nu step warm up with monitoring pre post vitals, introduce RPE scale advancing balance training LE shuttle HEP instruction: bridging, clamshells, UE band pulls corner balance
--- NOTE | 2025-04-14 13:49 | PT.OTN ---
Current Diagnoses Cortical blindness, unspecified side of brain (04/14/25) Severe hypoxic ischemic encephalopathy [HIE] (04/14/25) Other reduced mobility (04/14/25) Other specified health status (04/14/25) Physical Therapy Treatment Note PT-OP-A Visit Information Start: 03/31/25 12:38 Freq: Status: Active Protocol: Document 04/14/25 13:09 KW (Rec: 04/14/25 13:49 KW Laptop) Out-Patient Physical Therapy Visit Information Visit Information Visit Type Treatment Note Visit Note O2 sATS 100% hr: 60, 74-84 with ex, on beta joe bp 1114/70 134/83 with exercise Visit Start Time 13:00 Visit Stop Time 13:05 Visit Number 4 Evaluation Information Evaluation Date 03/30/25 Precautions Precautions Cardiac, 3 month heart monitor abdominal binder to support Blood Pressure cortical blindness Beta joe PT-OP-B Current Condition Start: 03/31/25 12:38 Freq: Status: Active Protocol: Document 04/14/25 13:09 KW (Rec: 04/14/25 13:49 KW Laptop) Current Condition History of Current Condition Onset Date 02/22/2025 Current Complaints balance deficits, vision impairment, cognitive function , cardiac status History of Current patient suffered OR 02/22/25, bystander CPR by RN, Condition underwent 3 stents, left ADA, sustained anoxic brain injury, cortical blindness. currently wearing a cafeteria monitor for 3 months, attending cardiac rehab, OT, Speech. Underwent 3 of 4 weeks of inpatient rehab stay at [facility]. He has since removed home with his supportive , Theresa. Supportive family in the area. 2 steps to enter 1 story home. 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 PT-OP-C Subjective Start: 03/31/25 12:38 Freq: Status: Active Protocol: Document 04/14/25 13:09 KW (Rec: 04/14/25 13:49 KW Laptop) OP-PT Subjective Patient Comments Patient Comments had two episodes of light headiness after OT and then after using the nu step at home, used it for 25 min, higher intensity daily walks with spouse spouse purchased a Nu step for home, has had two workouts already. documenting HR, BP has not heard from Cardiac Rehab for start date had a fall on a grass hill, felt like he was being pulled to the left. PT-OP-D Balance Start: 03/31/25 12:38 Freq: Status: Active Protocol: Document 03/30/25 12:39 KW (Rec: 03/31/25 13:01 KW Laptop) OP-PT Balance Assessment Sitting Balance Static Sitting Normal Balance Ability Dynamic Sitting Good Balance Ability Standing Balance Static Standing Good Balance Ability Dynamic Standing Fair Balance Ability Erazo Balance Assessment Evaluation Sitting to Standing Independent w/Hands Ability Unsupported Stance Supervision- 2 minutes Sitting Unsupported, Supervision- 2 minutes Feet on Floor Standing to Sitting Assist, Control w/Hands Ability Transfer Ability Supervision, Verbal Cues Unsupported Stance- 3 seconds Eyes Closed Unsupported Stance- Independent, <30 seconds Eyes Open Reaching Forward Safely, 2 inches Standing Pick- Up Object From Within 2 inches, Unable Floor Look Behind Shoulder Turns Sideways Only - Standing Turning 360 Degrees Supervision/Verbal Cues Unsupported Stance, 2 Steps w/Minimum Assist Alternating Feet on Stair Unsupported Tandem Assist to Step-15 seconds Stance Unilateral Leg Lifts Leg/Unable to Hold Stance Total Score Erazo Total Score ( 28 out of 56 points) Erazo Impairment 40 to 59% Impaired (Score 23-33) Rating Liu Fall Scale Copyright Permission PT-OP-E Functional Tests Start: 03/31/25 12:38 Freq: Status: Active Protocol: Document 03/30/25 12:39 KW (Rec: 03/31/25 13:01 KW Laptop) Functional Tests 6 Minute Walk Test Distance 60 M Device Used none 10 Meter Walk Test Distance 10 M Device Used none PT-OP-F Manual Assessment Start: 03/31/25 12:38 Freq: Status: Active Protocol: Document 03/30/25 12:39 KW (Rec: 03/31/25 13:01 KW Laptop) Manual Assessments Soft Tissue Assessment Soft Tissue Mobility NT Assessment Joint Mobility Assessment Joint Mobility WNL x 4 Assessment PT-OP-G Mobility & Gait Start: 03/31/25 12:38 Freq: Status: Active Protocol: Document 03/30/25 12:39 KW (Rec: 03/31/25 13:01 KW Laptop) OP Mobility Evaluation Bed Mobility Rolling Indep Supine to and from supervision Sit Transfers Sit to Stand SBA Bed to Chair SBA Transfers Car Transfers CGA Floor Transfers Min A Functional Movements Lifting and Carrying NT Squats CGA Running Assessment NA due to cardiac precautions OP Gait Assessment Gait Gait Assistance Standby Assistance Required: Distance (Feet) 1,000 Assistive Devices Assistive Device None,Gait Belt Gait Deviations General Gait Pattern Decreased Feet Clearance Factors Limiting Gait Function Factors Limiting Poor Balance Gait Function Comments Gait Comments vision status significant limitation, CGA for curbs, uneven terrain Stair Climbing Evaluation Evaluation Level of Assist On Contact Guard Assistance Stairs Devices Stair Climbing None Assistive Devices Comments Stair Climbing step over gait, cues for foot placement Comments PT-OP-H Neuro Start: 03/31/25 12:38 Freq: Status: Active Protocol: Document 03/30/25 12:39 KW (Rec: 03/31/25 13:01 KW Laptop) Muscle Tone Tone Assessment UE Flexor Tone Normal Description Extensor Tone Normal Description Muscle Tone Comments Normal B LE as well Vital Signs Pulse 1 Pulse at Rest (bpm) 61 Pulse Assessment Pulse Ox/Monitor Method Blood Pressure Sitting Blood Pressure (90/ 107/70 60-120/80 mmHg) Blood Pressure Automatic Cuff Source Oxygen Pulse Oximetry at 96 Rest (%) (95-100 %) Oxygen Delivery Room Air Method PT-OP-J Posture/Palpation/Skin Start: 03/31/25 12:38 Freq: Status: Active Protocol: Document 03/30/25 12:39 KW (Rec: 03/31/25 13:01 KW Laptop) Posture Evaluation Comments Posture Comments WNL noted low tone, facial, new mouth open breathing pattern PT-OP-M Strength Start: 03/31/25 12:38 Freq: Status: Active Protocol: Document 03/30/25 12:39 KW (Rec: 03/31/25 13:01 KW Laptop) Shoulder Strength Shoulder Manual Muscle Testing Left Flexion 4 Good Extension 4 Good Abduction (C5) 4 Good Adduction 4 Good External Rotation 4 Good Internal Rotation 4 Good Horizontal Abduction 4 Good Horizontal Adduction 4 Good Comments R UE as well Hip Strength Hip Manual Muscle Testing Left Flexion (L2) 4 Good Extension (S1) 4 Good Abduction 4 Good Adduction 4 Good External Rotation 4 Good Internal Rotation 4 Good Comments Right LE as well PT-OP-Q Treatments Start: 03/31/25 12:38 Freq: Status: Active Protocol: Document 04/14/25 13:09 KW (Rec: 04/14/25 13:49 KW Laptop) Cardio Equipment Recumbent Stepper (Sci-Fit) Duration (Minutes) 10 Resistance 1 Other RPE, talk test 6/10 Gym Equipment Shuttle Recovery Squats Details B squats 67#, single leg 37# 25# jumps Reps/Time 2 x 10 each Shuttle Balance red Details wt shifting R/L L/R AP/ML directions Sport Cord walk outs Exercise Details AP/ML walk outs with cord at waist, Therapeutic Exercises Sitting Exercises sit to stand Sitting Exercise sit to stand, without use of hands Name Reps/Minutes x 10 Standing Exercises gastroc stretch Standing Exercise B gastroc stretch with MORENA wedge Name Neuro Re-Education Treatment Balance Activities hurdles Details stepping over anterior/lateral HEP corner balance Details // bars. BOSU, 4 mat wt shift, head turns Self-Care/Home Management Treatment Education Patient Education Body Mechanics,Fall Risk,Home Exercise Program,Joint Protection,Posture,Safety Other Education ed re hydration, RPE, monitoring BP as HR is on a beta joe PT-OP-T Assessment and Plan Start: 03/31/25 12:38 Freq: Status: Active Protocol: Document 04/14/25 13:09 KW (Rec: 04/14/25 13:49 KW Laptop) Physical Therapy Assessment Rehab Potential Rehabilitation Good Potential Evaluation Complexity Number of Personal 3 or More Factors/ Comorbidities Number of Body 4 or More Systems Impaired Clinical Unstable Presentation at Evaluation Impairments Impairments Balance,Functional Activities,Functional Mobility,Gait Goals Three Impairment decreased LE strength Short Term Goal (STG patient with improved LE strength 4+, able to bridge, ) participate in leg press STG Duration 6 weeks Two Impairment impaired gait Short Term Goal (STG patient ambulates with trekking pole outdoors, SBA ) STG Duration 6 weeks One Impairment Lack of HEP Short Term Goal (STG patient and family demonstrate indep HEP balance in ) corner 10 min daily Assessment Summary Assessment BP monitored throughout session. stable, good recovery. PUshed hydration thru session. No pain. RPE stayed stable, never higher than 6 Physical Therapy Plan Frequency and Duration Frequency of 2x/Week Treatment Plan of Care Start 03/30/25 Date Plan of Care End 06/30/25 Date Therapeutic Interventions Therapeutic Balance Training,Gait Training,Home Exercise Program, Interventions Manual Therapy,Neuromuscular Re-education,Patient/ Caregiver Education,Self-Care/Home Management, Therapeutic Activities,Therapeutic Exercises Modalities Cold Pack/Ice Massage,Electric Stimulation,Hot Packs, Ultrasound Next Visit Focus/Plan Next Note Type Treatment Note Next Visit Plan nu step warm up with monitoring pre post vitals, introduce RPE scale advancing balance training LE shuttle HEP instruction: bridging, clamshells, UE band pulls corner balance
--- NOTE | 2025-04-19 08:42 | PT.OTN ---
Current Diagnoses Cortical blindness, unspecified side of brain (04/19/25) Severe hypoxic ischemic encephalopathy [HIE] (04/19/25) Other reduced mobility (04/19/25) Other specified health status (04/19/25) Physical Therapy Treatment Note PT-OP-A Visit Information Start: 03/31/25 12:38 Freq: Status: Active Protocol: Document 04/19/25 08:28 KW (Rec: 04/19/25 08:41 KW Laptop) Out-Patient Physical Therapy Visit Information Visit Information Visit Type Treatment Note Visit Note O2 sATS 100% hr: 60, 74-84 with ex, on beta joe bp 1114/70 114/75 with exercise Visit Start Time 07:40 Visit Stop Time 08:15 Visit Number 5 Evaluation Information Evaluation Date 03/30/25 Precautions Precautions Cardiac, 3 month heart monitor abdominal binder to support Blood Pressure prn cortical blindness Beta joe PT-OP-B Current Condition Start: 03/31/25 12:38 Freq: Status: Active Protocol: Document 04/14/25 13:09 KW (Rec: 04/14/25 13:49 KW Laptop) Current Condition History of Current Condition Onset Date 02/22/2025 Current Complaints balance deficits, vision impairment, cognitive function , cardiac status History of Current patient suffered [place] 02/22/25, bystander CPR by RN, Condition underwent 3 stents, left ADA, sustained anoxic brain injury, cortical blindness. currently wearing a monitoring engineer for 3 months, attending cardiac rehab, OT, Speech. Underwent 3 of 4 weeks of inpatient rehab stay at [facility]. He has since removed home with his supportive , Theresa. Supportive family in the area. 2 steps to enter 1 story home. 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 PT-OP-C Subjective Start: 03/31/25 12:38 Freq: Status: Active Protocol: Document 04/19/25 08:28 KW (Rec: 04/19/25 08:41 KW Laptop) OP-PT Subjective Patient Comments Patient Comments had three episodes of light headiness after OT and then after using the nu step at home, used it for 25 min, higher intensity daily walks with spouse spouse purchased a Nu step for home, has had two workouts already. documenting HR, BP has not heard from Cardiac Rehab for start date no falls this week. spouse was frustrated that he was helping grandson move a heavy ladder. PT-OP-D Balance Start: 03/31/25 12:38 Freq: Status: Active Protocol: Document 03/30/25 12:39 KW (Rec: 03/31/25 13:01 KW Laptop) OP-PT Balance Assessment Sitting Balance Static Sitting Normal Balance Ability Dynamic Sitting Good Balance Ability Standing Balance Static Standing Good Balance Ability Dynamic Standing Fair Balance Ability Erazo Balance Assessment Evaluation Sitting to Standing Independent w/Hands Ability Unsupported Stance Supervision- 2 minutes Sitting Unsupported, Supervision- 2 minutes Feet on Floor Standing to Sitting Assist, Control w/Hands Ability Transfer Ability Supervision, Verbal Cues Unsupported Stance- 3 seconds Eyes Closed Unsupported Stance- Independent, <30 seconds Eyes Open Reaching Forward Safely, 2 inches Standing Pick- Up Object From Within 2 inches, Unable Floor Look Behind Shoulder Turns Sideways Only - Standing Turning 360 Degrees Supervision/Verbal Cues Unsupported Stance, 2 Steps w/Minimum Assist Alternating Feet on Stair Unsupported Tandem Assist to Step-15 seconds Stance Unilateral Leg Lifts Leg/Unable to Hold Stance Total Score Erazo Total Score ( 28 out of 56 points) Erazo Impairment 40 to 59% Impaired (Score 23-33) Rating Liu Fall Scale Copyright Permission PT-OP-E Functional Tests Start: 03/31/25 12:38 Freq: Status: Active Protocol: Document 03/30/25 12:39 KW (Rec: 03/31/25 13:01 KW Laptop) Functional Tests 6 Minute Walk Test Distance 60 M Device Used none 10 Meter Walk Test Distance 10 M Device Used none PT-OP-F Manual Assessment Start: 03/31/25 12:38 Freq: Status: Active Protocol: Document 03/30/25 12:39 KW (Rec: 03/31/25 13:01 KW Laptop) Manual Assessments Soft Tissue Assessment Soft Tissue Mobility NT Assessment Joint Mobility Assessment Joint Mobility WNL x 4 Assessment PT-OP-G Mobility & Gait Start: 03/31/25 12:38 Freq: Status: Active Protocol: Document 03/30/25 12:39 KW (Rec: 03/31/25 13:01 KW Laptop) OP Mobility Evaluation Bed Mobility Rolling Indep Supine to and from supervision Sit Transfers Sit to Stand SBA Bed to Chair SBA Transfers Car Transfers CGA Floor Transfers Min A Functional Movements Lifting and Carrying NT Squats CGA Running Assessment NA due to cardiac precautions OP Gait Assessment Gait Gait Assistance Standby Assistance Required: Distance (Feet) 1,000 Assistive Devices Assistive Device None,Gait Belt Gait Deviations General Gait Pattern Decreased Feet Clearance Factors Limiting Gait Function Factors Limiting Poor Balance Gait Function Comments Gait Comments vision status significant limitation, CGA for curbs, uneven terrain Stair Climbing Evaluation Evaluation Level of Assist On Contact Guard Assistance Stairs Devices Stair Climbing None Assistive Devices Comments Stair Climbing step over gait, cues for foot placement Comments PT-OP-H Neuro Start: 03/31/25 12:38 Freq: Status: Active Protocol: Document 03/30/25 12:39 KW (Rec: 03/31/25 13:01 KW Laptop) Muscle Tone Tone Assessment UE Flexor Tone Normal Description Extensor Tone Normal Description Muscle Tone Comments Normal B LE as well Vital Signs Pulse 1 Pulse at Rest (bpm) 61 Pulse Assessment Pulse Ox/Monitor Method Blood Pressure Sitting Blood Pressure (90/ 107/70 60-120/80 mmHg) Blood Pressure Automatic Cuff Source Oxygen Pulse Oximetry at 96 Rest (%) (95-100 %) Oxygen Delivery Room Air Method PT-OP-J Posture/Palpation/Skin Start: 03/31/25 12:38 Freq: Status: Active Protocol: Document 03/30/25 12:39 KW (Rec: 03/31/25 13:01 KW Laptop) Posture Evaluation Comments Posture Comments WNL noted low tone, facial, new mouth open breathing pattern PT-OP-M Strength Start: 03/31/25 12:38 Freq: Status: Active Protocol: Document 03/30/25 12:39 KW (Rec: 03/31/25 13:01 KW Laptop) Shoulder Strength Shoulder Manual Muscle Testing Left Flexion 4 Good Extension 4 Good Abduction (C5) 4 Good Adduction 4 Good External Rotation 4 Good Internal Rotation 4 Good Horizontal Abduction 4 Good Horizontal Adduction 4 Good Comments R UE as well Hip Strength Hip Manual Muscle Testing Left Flexion (L2) 4 Good Extension (S1) 4 Good Abduction 4 Good Adduction 4 Good External Rotation 4 Good Internal Rotation 4 Good Comments Right LE as well PT-OP-Q Treatments Start: 03/31/25 12:38 Freq: Status: Active Protocol: Document 04/19/25 08:28 KW (Rec: 04/19/25 08:41 KW Laptop) Cardio Equipment Recumbent Stepper (Sci-Fit) Duration (Minutes) 5 Resistance 1 Other RPE, talk test 6/10 Gym Equipment Shuttle Recovery Squats Details B squats 67#, single leg 37# 25# jumps Reps/Time 2 x 10 each Shuttle Balance red Details wt shifting R/L L/R AP/ML directions Therapeutic Ball seated Exercise Details seated on silver ball Comments B UE bands PNF patterns D1 D2 B UE extension x 15 each, coordinated breathing patterns Sport Cord walk outs Exercise Details AP/ML walk outs with cord at waist, Therapeutic Exercises Sidelying Exercises side plank Sidelying Exercise sidelying hip adduction, side plank Name Side bilateral Comments x 10 each, coordinated breathing Sitting Exercises sit to stand Sitting Exercise sit to stand, without use of hands Name Reps/Minutes x 10 Standing Exercises gastroc stretch Standing Exercise B gastroc stretch with MORENA wedge Name Neuro Re-Education Treatment Balance Activities BOSU Details step ups, AP, ML Comments x 10 each hurdles Details stepping over anterior/lateral on BOSU HEP corner balance Details // bars. BOSU, 4 mat wt shift, head turns Self-Care/Home Management Treatment Education Patient Education Body Mechanics,Fall Risk,Home Exercise Program,Joint Protection,Posture,Safety Other Education Ed: carry ladder with 2nd person assist ok. ed re hydration, RPE, monitoring BP as HR is on a beta joe ideas for balance in quadruped, tall kneeling, standing on BOSU for home PT-OP-T Assessment and Plan Start: 03/31/25 12:38 Freq: Status: Active Protocol: Document 04/19/25 08:28 KW (Rec: 04/19/25 08:41 KW Laptop) Physical Therapy Assessment Rehab Potential Rehabilitation Good Potential Evaluation Complexity Number of Personal 3 or More Factors/ Comorbidities Number of Body 4 or More Systems Impaired Clinical Unstable Presentation at Evaluation Impairments Impairments Balance,Functional Activities,Functional Mobility,Gait Goals Three Impairment decreased LE strength Short Term Goal (STG patient with improved LE strength 4+, able to bridge, ) participate in leg press STG Duration 6 weeks Two Impairment impaired gait Short Term Goal (STG patient ambulates with trekking pole outdoors, SBA ) STG Duration 6 weeks One Impairment Lack of HEP Short Term Goal (STG patient and family demonstrate indep HEP balance in ) corner 10 min daily Assessment Summary Assessment excellent support by family, spouse Oriana. exercising 2 x day at home BP monitored throughout session. stable, good recovery. PUshed hydration thru session. No pain. RPE stayed stable, never higher than 6 Physical Therapy Plan Frequency and Duration Frequency of 2x/Week Treatment Plan of Care Start 03/30/25 Date Plan of Care End 06/30/25 Date Therapeutic Interventions Therapeutic Balance Training,Gait Training,Home Exercise Program, Interventions Manual Therapy,Neuromuscular Re-education,Patient/ Caregiver Education,Self-Care/Home Management, Therapeutic Activities,Therapeutic Exercises Modalities Cold Pack/Ice Massage,Electric Stimulation,Hot Packs, Ultrasound Next Visit Focus/Plan Next Note Type Treatment Note Next Visit Plan nu step warm up with monitoring pre post vitals, introduce RPE scale advancing balance training LE shuttle HEP instruction: bridging, clamshells, UE band pulls corner balance
--- NOTE | 2025-04-21 13:52 | PT.OTN ---
Current Diagnoses Cortical blindness, unspecified side of brain (04/21/25) Severe hypoxic ischemic encephalopathy [HIE] (04/21/25) Other reduced mobility (04/21/25) Other specified health status (04/21/25) Physical Therapy Treatment Note PT-OP-A Visit Information Start: 03/31/25 12:38 Freq: Status: Active Protocol: Document 04/21/25 13:05 KW (Rec: 04/21/25 13:10 KW Laptop) Out-Patient Physical Therapy Visit Information Visit Information Visit Type Treatment Note Visit Note O2 sATS 100% hr: 60, 75-85 with ex, on beta joe bp 110/74 114/75 with exercise Visit Start Time 13:05 Visit Stop Time 14:45 Evaluation Information Evaluation Date 03/30/25 Precautions Precautions Cardiac, 3 month heart monitor abdominal binder to support Blood Pressure prn cortical blindness Beta joe PT-OP-B Current Condition Start: 03/31/25 12:38 Freq: Status: Active Protocol: Document 04/14/25 13:09 KW (Rec: 04/14/25 13:49 KW Laptop) Current Condition History of Current Condition Onset Date 02/22/2025 Current Complaints balance deficits, vision impairment, cognitive function , cardiac status History of Current patient suffered OR 02/22/25, bystander CPR by RN, Condition underwent 3 stents, left ADA, sustained anoxic brain injury, cortical blindness. currently wearing a manager monitoring for 3 months, attending cardiac rehab, OT, Speech. Underwent 3 of 4 weeks of inpatient rehab stay at [facility], [place]. He has since removed home with his supportive , Theresa. Supportive family in the area. 2 steps to enter 1 story home. 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 PT-OP-C Subjective Start: 03/31/25 12:38 Freq: Status: Active Protocol: Document 04/21/25 13:05 KW (Rec: 04/21/25 13:10 KW Laptop) OP-PT Subjective Patient Comments Patient Comments went out to breakfast this morning for 1st time. going to [employer] soon. riding exercise bike 2 x 20 min per day yoga stretches BOSU work PT-OP-D Balance Start: 03/31/25 12:38 Freq: Status: Active Protocol: Document 03/30/25 12:39 KW (Rec: 03/31/25 13:01 KW Laptop) OP-PT Balance Assessment Sitting Balance Static Sitting Normal Balance Ability Dynamic Sitting Good Balance Ability Standing Balance Static Standing Good Balance Ability Dynamic Standing Fair Balance Ability Erazo Balance Assessment Evaluation Sitting to Standing Independent w/Hands Ability Unsupported Stance Supervision- 2 minutes Sitting Unsupported, Supervision- 2 minutes Feet on Floor Standing to Sitting Assist, Control w/Hands Ability Transfer Ability Supervision, Verbal Cues Unsupported Stance- 3 seconds Eyes Closed Unsupported Stance- Independent, <30 seconds Eyes Open Reaching Forward Safely, 2 inches Standing Pick- Up Object From Within 2 inches, Unable Floor Look Behind Shoulder Turns Sideways Only - Standing Turning 360 Degrees Supervision/Verbal Cues Unsupported Stance, 2 Steps w/Minimum Assist Alternating Feet on Stair Unsupported Tandem Assist to Step-15 seconds Stance Unilateral Leg Lifts Leg/Unable to Hold Stance Total Score Erazo Total Score ( 28 out of 56 points) Erazo Impairment 40 to 59% Impaired (Score 23-33) Rating Liu Fall Scale Copyright Permission PT-OP-E Functional Tests Start: 03/31/25 12:38 Freq: Status: Active Protocol: Document 03/30/25 12:39 KW (Rec: 03/31/25 13:01 KW Laptop) Functional Tests 6 Minute Walk Test Distance 60 M Device Used none 10 Meter Walk Test Distance 10 M Device Used none PT-OP-F Manual Assessment Start: 03/31/25 12:38 Freq: Status: Active Protocol: Document 03/30/25 12:39 KW (Rec: 03/31/25 13:01 KW Laptop) Manual Assessments Soft Tissue Assessment Soft Tissue Mobility NT Assessment Joint Mobility Assessment Joint Mobility WNL x 4 Assessment PT-OP-G Mobility & Gait Start: 03/31/25 12:38 Freq: Status: Active Protocol: Document 03/30/25 12:39 KW (Rec: 03/31/25 13:01 KW Laptop) OP Mobility Evaluation Bed Mobility Rolling Indep Supine to and from supervision Sit Transfers Sit to Stand SBA Bed to Chair SBA Transfers Car Transfers CGA Floor Transfers Min A Functional Movements Lifting and Carrying NT Squats CGA Running Assessment NA due to cardiac precautions OP Gait Assessment Gait Gait Assistance Standby Assistance Required: Distance (Feet) 1,000 Assistive Devices Assistive Device None,Gait Belt Gait Deviations General Gait Pattern Decreased Feet Clearance Factors Limiting Gait Function Factors Limiting Poor Balance Gait Function Comments Gait Comments vision status significant limitation, CGA for curbs, uneven terrain Stair Climbing Evaluation Evaluation Level of Assist On Contact Guard Assistance Stairs Devices Stair Climbing None Assistive Devices Comments Stair Climbing step over gait, cues for foot placement Comments PT-OP-H Neuro Start: 03/31/25 12:38 Freq: Status: Active Protocol: Document 03/30/25 12:39 KW (Rec: 03/31/25 13:01 KW Laptop) Muscle Tone Tone Assessment UE Flexor Tone Normal Description Extensor Tone Normal Description Muscle Tone Comments Normal B LE as well Vital Signs Pulse 1 Pulse at Rest (bpm) 61 Pulse Assessment Pulse Ox/Monitor Method Blood Pressure Sitting Blood Pressure (90/ 107/70 60-120/80 mmHg) Blood Pressure Automatic Cuff Source Oxygen Pulse Oximetry at 96 Rest (%) (95-100 %) Oxygen Delivery Room Air Method PT-OP-J Posture/Palpation/Skin Start: 03/31/25 12:38 Freq: Status: Active Protocol: Document 03/30/25 12:39 KW (Rec: 03/31/25 13:01 KW Laptop) Posture Evaluation Comments Posture Comments WNL noted low tone, facial, new mouth open breathing pattern PT-OP-M Strength Start: 03/31/25 12:38 Freq: Status: Active Protocol: Document 03/30/25 12:39 KW (Rec: 03/31/25 13:01 KW Laptop) Shoulder Strength Shoulder Manual Muscle Testing Left Flexion 4 Good Extension 4 Good Abduction (C5) 4 Good Adduction 4 Good External Rotation 4 Good Internal Rotation 4 Good Horizontal Abduction 4 Good Horizontal Adduction 4 Good Comments R UE as well Hip Strength Hip Manual Muscle Testing Left Flexion (L2) 4 Good Extension (S1) 4 Good Abduction 4 Good Adduction 4 Good External Rotation 4 Good Internal Rotation 4 Good Comments Right LE as well PT-OP-Q Treatments Start: 03/31/25 12:38 Freq: Status: Active Protocol: Document 04/21/25 13:05 KW (Rec: 04/21/25 13:10 KW Laptop) Cardio Equipment Recumbent Stepper (Sci-Fit) Duration (Minutes) 6 Resistance 1 Other RPE, talk test 6/10 Gym Equipment Shuttle Recovery Squats Details B squats 67#, single leg 37# 25# jumps Reps/Time 2 x 10 each Shuttle Balance red Details wt shifting R/L L/R AP/ML directions Therapeutic Ball seated Exercise Details seated on silver ball Comments B UE bands PNF patterns D1 D2 B UE extension x 15 each, coordinated breathing patterns Sport Cord walk outs Exercise Details AP/ML walk outs with cord at waist, Therapeutic Exercises Sidelying Exercises side plank Sidelying Exercise sidelying hip adduction, side plank Name Side bilateral Comments x 10 each, coordinated breathing Sitting Exercises sit to stand Sitting Exercise sit to stand, without use of hands Name Reps/Minutes x 10 Standing Exercises gastroc stretch Standing Exercise B gastroc stretch with MORENA wedge Name Other Exercises BOSU Other Exercise Name rapid alternating steps Side bilateral agility ladder Other Exercise Name 5 sequences Side bilateral band walks Other Exercise Name band walks Side bilateral Equipment Used blue band Comments 10 Neuro Re-Education Treatment Balance Activities BOSU Details step ups, AP, ML Comments x 10 each hurdles Details stepping over anterior/lateral on BOSU HEP corner balance Details // bars. BOSU, 4 mat wt shift, head turns PT-OP-T Assessment and Plan Start: 03/31/25 12:38 Freq: Status: Active Protocol: Document 04/21/25 13:05 KW (Rec: 04/21/25 13:11 KW Laptop) Physical Therapy Assessment Rehab Potential Rehabilitation Excellent Potential Evaluation Complexity Number of Personal 3 or More Factors/ Comorbidities Number of Body 4 or More Systems Impaired Clinical Evolving Presentation at Evaluation Impairments Impairments Balance,Functional Activities,Functional Mobility,Gait Goals Three Impairment decreased LE strength Short Term Goal ([facility] patient with improved LE strength 4+, able to bridge, ) participate in leg press STG Duration 6 weeks Two Impairment impaired gait Short Term Goal ([facility] patient ambulates with trekking pole outdoors, SBA ) STG Duration 6 weeks One Impairment Lack of HEP Short Term Goal ([facility] patient and family demonstrate indep HEP balance in ) corner 10 min daily Assessment Summary Assessment excellent compliance at home with bike, exercises improving strength, cardio, balance Physical Therapy Plan Frequency and Duration Frequency of 2x/Week Treatment Plan of Care Start 03/30/25 Date Plan of Care End 06/30/25 Date Therapeutic Interventions Therapeutic Balance Training,Gait Training,Home Exercise Program, Interventions Manual Therapy,Neuromuscular Re-education,Patient/ Caregiver Education,Self-Care/Home Management, Therapeutic Activities,Therapeutic Exercises Modalities Cold Pack/Ice Massage,Electric Stimulation,Hot Packs, Ultrasound Next Visit Focus/Plan Next Note Type Treatment Note Next Visit Plan nu step warm up with monitoring pre post vitals, introduce RPE scale advancing balance training LE shuttle HEP instruction: bridging, clamshells, UE band pulls corner balance
[2025-04-26 13:06] VITALS: O2SAT 100
--- NOTE | 2025-04-26 13:47 | PT.OTN ---
Current Diagnoses Cortical blindness, unspecified side of brain (04/26/25) Severe hypoxic ischemic encephalopathy [HIE] (04/26/25) Other reduced mobility (04/26/25) Other specified health status (04/26/25) Physical Therapy Treatment Note PT-OP-A Visit Information Start: 03/31/25 12:38 Freq: Status: Active Protocol: Document 04/26/25 13:06 KW (Rec: 04/26/25 13:47 KW Laptop) Out-Patient Physical Therapy Visit Information Visit Information Visit Type Progress Note Visit Note O2 sATS 100% hr: 57, 75-85 with ex, on beta joe bp 117/67 1 with exercise Visit Start Time 13:05 Visit Stop Time 14:45 Evaluation Information Evaluation Date 03/30/25 Precautions Precautions Cardiac, 3 month heart monitor abdominal binder to support Blood Pressure prn cortical blindness Beta joe PT-OP-B Current Condition Start: 03/31/25 12:38 Freq: Status: Active Protocol: Document 04/26/25 13:06 KW (Rec: 04/26/25 13:47 KW Laptop) Current Condition History of Current Condition Onset Date 02/22/2025 Current Complaints balance deficits, vision impairment, cognitive function , cardiac status History of Current patient suffered [place] 02/22/25, bystander CPR by RN, Condition underwent 3 stents, left ADA, sustained anoxic brain injury, cortical blindness. currently wearing a color television console monitor for 3 months, attending cardiac rehab, OT, Speech. Underwent 3 of 4 weeks of inpatient rehab stay at [facility]. He has since removed home with his supportive , Theresa. Supportive family in the area. 2 steps to enter 1 story home. PMHx: significant for total hip replacement, arthritis, depression, DM II PT-OP-C Subjective Start: 03/31/25 12:38 Freq: Status: Active Protocol: Document 04/26/25 13:06 KW (Rec: 04/26/25 13:47 KW Laptop) OP-PT Subjective Patient Comments Patient Comments blood sugars have been stable, monitoring with CGM exercises as home Nu step stretches BOSU PT-OP-D Balance Start: 03/31/25 12:38 Freq: Status: Active Protocol: Document 04/26/25 13:06 KW (Rec: 04/26/25 13:47 KW Laptop) Erazo Balance Assessment Evaluation Sitting to Standing Independent w/Hands Ability Unsupported Stance Safely- 2 minutes Sitting Unsupported, Safely- 2 minutes Feet on Floor Standing to Sitting Safely, Minimal Hand Use Ability Transfer Ability Safely, Hand Use Unsupported Stance- Safely, 10 seconds Eyes Closed Unsupported Stance- Independent, <30 seconds Eyes Open Reaching Forward Safely, 5 inches Standing Pick- Up Object From Supervision Floor Look Behind Shoulder Shifts Weight Unilateral - Standing Turning 360 Degrees Turns slowly, but safely Unsupported Stance, 4 Steps w/Supervision Alternating Feet on Stair Unsupported Tandem Small Step- 30 seconds Stance Unilateral Leg Lifts Leg/Unable to Hold Stance Total Score Erazo Total Score ( 40 out of 56 points) Erazo Impairment 40 to 59% Impaired (Score 23-33) Rating PT-OP-E Functional Tests Start: 03/31/25 12:38 Freq: Status: Active Protocol: Document 04/26/25 13:06 KW (Rec: 04/26/25 13:47 KW Laptop) Functional Tests 6 Minute Walk Test Distance 600 Device Used none PT-OP-F Manual Assessment Start: 03/31/25 12:38 Freq: Status: Active Protocol: Document 03/30/25 12:39 KW (Rec: 03/31/25 13:01 KW Laptop) Manual Assessments Soft Tissue Assessment Soft Tissue Mobility NT Assessment Joint Mobility Assessment Joint Mobility WNL x 4 Assessment PT-OP-G Mobility & Gait Start: 03/31/25 12:38 Freq: Status: Active Protocol: Document 04/26/25 13:06 KW (Rec: 04/26/25 13:47 KW Laptop) OP Mobility Evaluation Bed Mobility Rolling Indep Supine to and from independent Sit Transfers Sit to Stand independent Bed to Chair independent Transfers Car Transfers independent Floor Transfers SBA Functional Movements Lifting and Carrying 10 LB sit to stand from chair Squats SBA Running Assessment NA due to cardiac precautions OP Gait Assessment Gait Gait Assistance Independent Required: Distance (Feet) 1,000 Assistive Devices Assistive Device None Gait Deviations General Gait Pattern Decreased Feet Clearance Factors Limiting Gait Function Factors Limiting Decreased Activity Tolerance,Poor Balance Gait Function Comments Gait Comments vision status significant limitation, CGA for curbs, uneven terrain Stair Climbing Evaluation Evaluation Level of Assist On Standby Assistance,Contact Guard Assistance Stairs PT-OP-H Neuro Start: 03/31/25 12:38 Freq: Status: Active Protocol: Document 04/26/25 13:06 KW (Rec: 04/26/25 13:47 KW Laptop) Muscle Tone Tone Assessment UE Flexor Tone Normal Description Extensor Tone Normal Description Muscle Tone Comments Normal B LE as well Vital Signs Oxygen Pulse Oximetry at 100 Rest (%) (95-100 %) Oxygen Delivery Room Air Method PT-OP-J Posture/Palpation/Skin Start: 03/31/25 12:38 Freq: Status: Active Protocol: Document 03/30/25 12:39 KW (Rec: 03/31/25 13:01 KW Laptop) Posture Evaluation Comments Posture Comments WNL noted low tone, facial, new mouth open breathing pattern PT-OP-M Strength Start: 03/31/25 12:38 Freq: Status: Active Protocol: Document 04/26/25 13:06 KW (Rec: 04/26/25 13:47 KW Laptop) Hip Strength Hip Manual Muscle Testing Left Flexion (L2) 4 Good Extension (S1) 4 Good Abduction 4 Good Adduction 4 Good External Rotation 4 Good Internal Rotation 4 Good Comments Right LE as well PT-OP-Q Treatments Start: 03/31/25 12:38 Freq: Status: Active Protocol: Document 04/26/25 13:06 KW (Rec: 04/26/25 13:47 KW Laptop) Cardio Equipment Recumbent Stepper (Sci-Fit) Duration (Minutes) 6 Resistance 5 Other RPE, talk test 6/10 Gym Equipment Shuttle Recovery Squats Details B squats 75#, single leg 50# 37# jumps Reps/Time 2 x 10 each Shuttle Balance red Details wt shifting R/L L/R AP/ML directions Reps/Duration 6 min Therapeutic Ball seated Exercise Details seated on red ball Comments B UE bands PNF patterns D1 D2 B UE extension x 15 each, coordinated breathing patterns Sport Cord walk outs Exercise Details AP/ML walk outs with cord at waist, Reps/Duration black with orange x 4 directions Therapeutic Exercises Prone Exercises plank Prone Exercise Name plank on treatment table Reps/Minutes 2 x 30 sec Sidelying Exercises side plank Sidelying Exercise sidelying hip adduction, side plank Name Side bilateral Comments x 10 each, coordinated breathing Sitting Exercises sit to stand Sitting Exercise sit to stand, without use of hands, holding 10 Lb Name Reps/Minutes x 10 Standing Exercises gastroc stretch Standing Exercise B gastroc stretch with MORENA wedge Name Other Exercises BOSU Other Exercise Name rapid alternating steps Side bilateral agility ladder Other Exercise Name 5 sequences Side bilateral band walks Other Exercise Name band walks Side bilateral Equipment Used blue band Comments 10 Neuro Re-Education Treatment Balance Activities BOSU Details step ups, AP, ML Comments x 10 each working into more rapid movements hurdles Details stepping over anterior/lateral on BOSU HEP corner balance Details // bars. BOSU, 4 mat wt shift, head turns Self-Care/Home Management Treatment Education Patient Education Body Mechanics,Fall Risk,Home Exercise Program,Joint Protection,Posture,Safety Other Education Ed: carry ladder with 2nd person assist ok with SBA of spouse. ed re hydration, RPE, monitoring BP as HR is on a beta joe ideas for balance in quadruped, tall kneeling, standing on BOSU for home PT-OP-T Assessment and Plan Start: 03/31/25 12:38 Freq: Status: Active Protocol: Document 04/26/25 13:06 KW (Rec: 04/26/25 13:47 KW Laptop) Physical Therapy Assessment Rehab Potential Rehabilitation Excellent Potential Evaluation Complexity Number of Personal 3 or More Factors/ Comorbidities Number of Body 4 or More Systems Impaired Clinical Evolving Presentation at Evaluation Impairments Impairments Balance,Functional Activities,Functional Mobility,Gait Other Concerns Fall Risk yes Goals Four Impairment impaired CORE strength Short Term Goal ([facility] able to hold plank 1 min ) STG Duration 6 weeks Three Impairment decreased LE strength Short Term Goal ([facility] patient with improved LE strength 4+, able to bridge, ) participate in leg press - progressing well STG Duration 6 weeks Two Impairment impaired gait Short Term Goal ([facility] patient ambulates with trekking pole outdoors, SBA - ) MET STG Duration 6 weeks One Impairment Lack of HEP Short Term Goal ([facility] patient and family demonstrate indep HEP balance in ) corner 10 min daily - MET Progress Towards Goals Progress Towards Progressing Toward Goals Goals Assessment Summary Assessment excellent compliance at home with bike, exercises improving strength, cardio, balance CORE strength is improving but will be focus Physical Therapy Plan Frequency and Duration Frequency of 2x/Week Treatment Plan of Care Start 03/30/25 Date Plan of Care End 06/30/25 Date Therapeutic Interventions Therapeutic Balance Training,Gait Training,Home Exercise Program, Interventions Manual Therapy,Neuromuscular Re-education,Patient/ Caregiver Education,Self-Care/Home Management, Therapeutic Activities,Therapeutic Exercises Modalities Cold Pack/Ice Massage,Electric Stimulation,Hot Packs, Ultrasound Next Visit Focus/Plan Next Note Type Treatment Note Next Visit Plan nu step warm up with monitoring pre post vitals, introduce RPE scale advancing balance training LE shuttle HEP instruction: bridging, clamshells, UE band pulls corner balance
--- NOTE | 2025-04-27 13:53 | PT.OTN ---
Current Diagnoses Cortical blindness, unspecified side of brain (04/27/25) Severe hypoxic ischemic encephalopathy [HIE] (04/27/25) Other reduced mobility (04/27/25) Other specified health status (04/27/25) Physical Therapy Treatment Note PT-OP-A Visit Information Start: 03/31/25 12:38 Freq: Status: Active Protocol: Document 04/27/25 13:10 KW (Rec: 04/27/25 13:52 KW Laptop) Out-Patient Physical Therapy Visit Information Visit Information Visit Type Progress Note Visit Note O2 sATS 100% hr: 55, 75-85 with ex, on beta joe bp 102/65 with exercise Visit Start Time 13:00 Visit Stop Time 14:40 Evaluation Information Evaluation Date 03/30/25 Precautions Precautions Cardiac, 3 month heart monitor abdominal binder to support Blood Pressure prn cortical blindness Beta joe PT-OP-B Current Condition Start: 03/31/25 12:38 Freq: Status: Active Protocol: Document 04/26/25 13:06 KW (Rec: 04/26/25 13:47 KW Laptop) Current Condition History of Current Condition Onset Date 02/22/2025 Current Complaints balance deficits, vision impairment, cognitive function , cardiac status History of Current patient suffered CT 02/22/25, bystander CPR by RN, Condition underwent 3 stents, left ADA, sustained anoxic brain injury, cortical blindness. currently wearing a manager discovery for 3 months, attending cardiac rehab, OT, Speech. Underwent 3 of 4 weeks of inpatient rehab stay at [facility]. He has since removed home with his supportive , Theresa. Supportive family in the area. 2 steps to enter 1 story home. PMHx: significant for total hip replacement, arthritis, depression, DM II PT-OP-C Subjective Start: 03/31/25 12:38 Freq: Status: Active Protocol: Document 04/27/25 13:10 KW (Rec: 04/27/25 13:52 KW Laptop) OP-PT Subjective Patient Comments Patient Comments also has an elliptical at home blood sugars have been stable, monitoring with CGM exercises as home Nu step stretches BOSU PT-OP-D Balance Start: 03/31/25 12:38 Freq: Status: Active Protocol: Document 04/26/25 13:06 KW (Rec: 04/26/25 13:47 KW Laptop) Erazo Balance Assessment Evaluation Sitting to Standing Independent w/Hands Ability Unsupported Stance Safely- 2 minutes Sitting Unsupported, Safely- 2 minutes Feet on Floor Standing to Sitting Safely, Minimal Hand Use Ability Transfer Ability Safely, Hand Use Unsupported Stance- Safely, 10 seconds Eyes Closed Unsupported Stance- Independent, <30 seconds Eyes Open Reaching Forward Safely, 5 inches Standing Pick- Up Object From Supervision Floor Look Behind Shoulder Shifts Weight Unilateral - Standing Turning 360 Degrees Turns slowly, but safely Unsupported Stance, 4 Steps w/Supervision Alternating Feet on Stair Unsupported Tandem Small Step- 30 seconds Stance Unilateral Leg Lifts Leg/Unable to Hold Stance Total Score Erazo Total Score ( 40 out of 56 points) Erazo Impairment 40 to 59% Impaired (Score 23-33) Rating PT-OP-E Functional Tests Start: 03/31/25 12:38 Freq: Status: Active Protocol: Document 04/26/25 13:06 KW (Rec: 04/26/25 13:47 KW Laptop) Functional Tests 6 Minute Walk Test Distance 600 Device Used none PT-OP-F Manual Assessment Start: 03/31/25 12:38 Freq: Status: Active Protocol: Document 03/30/25 12:39 KW (Rec: 03/31/25 13:01 KW Laptop) Manual Assessments Soft Tissue Assessment Soft Tissue Mobility NT Assessment Joint Mobility Assessment Joint Mobility WNL x 4 Assessment PT-OP-G Mobility & Gait Start: 03/31/25 12:38 Freq: Status: Active Protocol: Document 04/26/25 13:06 KW (Rec: 04/26/25 13:47 KW Laptop) OP Mobility Evaluation Bed Mobility Rolling Indep Supine to and from independent Sit Transfers Sit to Stand independent Bed to Chair independent Transfers Car Transfers independent Floor Transfers SBA Functional Movements Lifting and Carrying 10 LB sit to stand from chair Squats SBA Running Assessment NA due to cardiac precautions OP Gait Assessment Gait Gait Assistance Independent Required: Distance (Feet) 1,000 Assistive Devices Assistive Device None Gait Deviations General Gait Pattern Decreased Feet Clearance Factors Limiting Gait Function Factors Limiting Decreased Activity Tolerance,Poor Balance Gait Function Comments Gait Comments vision status significant limitation, CGA for curbs, uneven terrain Stair Climbing Evaluation Evaluation Level of Assist On Standby Assistance,Contact Guard Assistance Stairs PT-OP-H Neuro Start: 03/31/25 12:38 Freq: Status: Active Protocol: Document 04/26/25 13:06 KW (Rec: 04/26/25 13:47 KW Laptop) Muscle Tone Tone Assessment UE Flexor Tone Normal Description Extensor Tone Normal Description Muscle Tone Comments Normal B LE as well Vital Signs Oxygen Pulse Oximetry at 100 Rest (%) (95-100 %) Oxygen Delivery Room Air Method PT-OP-J Posture/Palpation/Skin Start: 03/31/25 12:38 Freq: Status: Active Protocol: Document 03/30/25 12:39 KW (Rec: 03/31/25 13:01 KW Laptop) Posture Evaluation Comments Posture Comments WNL noted low tone, facial, new mouth open breathing pattern PT-OP-M Strength Start: 03/31/25 12:38 Freq: Status: Active Protocol: Document 04/26/25 13:06 KW (Rec: 04/26/25 13:47 KW Laptop) Hip Strength Hip Manual Muscle Testing Left Flexion (L2) 4 Good Extension (S1) 4 Good Abduction 4 Good Adduction 4 Good External Rotation 4 Good Internal Rotation 4 Good Comments Right LE as well PT-OP-Q Treatments Start: 03/31/25 12:38 Freq: Status: Active Protocol: Document 04/27/25 13:10 KW (Rec: 04/27/25 13:52 KW Laptop) Cardio Equipment Recumbent Stepper (Sci-Fit) Duration (Minutes) 6 Resistance 5 Other RPE, talk test 6/10 Gym Equipment Shuttle Recovery Squats Details B squats 75#, single leg 50# 37# jumps Reps/Time 2 x 10 each Shuttle Balance red Details wt shifting R/L L/R AP/ML directions Reps/Duration 6 min Therapeutic Ball seated Exercise Details seated on red ball Comments B UE bands PNF patterns D1 D2 B UE extension x 15 each, coordinated breathing patterns Sport Cord walk outs Exercise Details AP/ML walk outs with cord at waist, Reps/Duration black with orange x 4 directions Therapeutic Exercises Prone Exercises plank Prone Exercise Name plank on treatment table Reps/Minutes 2 x 30 sec Sidelying Exercises side plank Sidelying Exercise sidelying hip adduction, side plank Name Side bilateral Comments x 10 each, coordinated breathing Sitting Exercises sit to stand Sitting Exercise sit to stand, without use of hands, holding 10 Lb Name Reps/Minutes x 10 Standing Exercises gastroc stretch Standing Exercise B gastroc stretch with MORENA wedge Name Other Exercises BOSU Other Exercise Name rapid alternating steps Side bilateral agility ladder Other Exercise Name 5 sequences Side bilateral band walks Other Exercise Name band walks Side bilateral Equipment Used blue band Comments 10 Neuro Re-Education Treatment Balance Activities BOSU Details step ups, AP, ML Comments x 10 each working into more rapid movements hurdles Details stepping over anterior/lateral on BOSU HEP corner balance Details // bars. BOSU, 4 mat wt shift, head turns Self-Care/Home Management Treatment Education Patient Education Body Mechanics,Fall Risk,Home Exercise Program,Joint Protection,Posture,Safety Other Education discussion initiated regarding spreading out PT visits to maximize since so compliant at home PT-OP-T Assessment and Plan Start: 03/31/25 12:38 Freq: Status: Active Protocol: Document 04/27/25 13:10 KW (Rec: 04/27/25 13:52 KW Laptop) Physical Therapy Assessment Rehab Potential Rehabilitation Excellent Potential Evaluation Complexity Number of Personal 3 or More Factors/ Comorbidities Number of Body 4 or More Systems Impaired Clinical Evolving Presentation at Evaluation Impairments Impairments Balance,Functional Activities,Functional Mobility,Gait Other Concerns Fall Risk yes Goals Four Impairment impaired CORE strength Short Term Goal (STG able to hold plank 1 min ) STG Duration 6 weeks Three Impairment decreased LE strength Short Term Goal (STG patient with improved LE strength 4+, able to bridge, ) participate in leg press - progressing well STG Duration 6 weeks Two Impairment impaired gait Short Term Goal ([facility] patient ambulates with trekking pole outdoors, SBA - ) MET STG Duration 6 weeks One Impairment Lack of HEP Short Term Goal (STG patient and family demonstrate indep HEP balance in ) corner 10 min daily - MET Progress Towards Goals Progress Towards Progressing Toward Goals Goals Assessment Summary Assessment recommend decrease frequency to 1 x week to conserve and extend out visits. strongly encourage hand in hand with spouse in community due to fall risk Physical Therapy Plan Frequency and Duration Frequency of 2x/Week Treatment Plan of Care Start 03/30/25 Date Plan of Care End 06/30/25 Date Therapeutic Interventions Therapeutic Balance Training,Gait Training,Home Exercise Program, Interventions Manual Therapy,Neuromuscular Re-education,Patient/ Caregiver Education,Self-Care/Home Management, Therapeutic Activities,Therapeutic Exercises Modalities Cold Pack/Ice Massage,Electric Stimulation,Hot Packs, Ultrasound Next Visit Focus/Plan Next Note Type Treatment Note Next Visit Plan nu step warm up with monitoring pre post vitals, introduce RPE scale advancing balance training LE shuttle HEP instruction: bridging, clamshells, UE band pulls corner balance PT-Therapy Code Fee Billing Start: 03/31/25 12:38 Freq: Status: Active Protocol: Document 04/27/25 13:10 KW (Rec: 04/27/25 13:52 KW Laptop) Physical Therapy Total Visit Minutes 40 PT Charge Codes - Fee KX Modifier Therapy Cap No Exclusion Modifier Therapeutic Exercise (80075) Minutes 25 PT Unit(s) per 15 2 min Neuromuscular Re-Education (01633) Minutes 15 PT Unit(s) per 15 1 min
--- NOTE | 2025-05-04 13:15 | PT.OTN ---
Current Diagnoses Cortical blindness, unspecified side of brain (05/04/25) Severe hypoxic ischemic encephalopathy [HIE] (05/04/25) Other reduced mobility (05/04/25) Other specified health status (05/04/25) Physical Therapy Treatment Note PT-OP-A Visit Information Start: 03/31/25 12:38 Freq: Status: Active Protocol: Document 05/04/25 13:08 KW (Rec: 05/04/25 13:14 KW Laptop) Out-Patient Physical Therapy Visit Information Visit Information Visit Type Progress Note Visit Note O2 sATS 100% hr: 55, 75-85 with ex, on beta joe bp 102/65 with exercise Visit Start Time 13:00 Visit Stop Time 13:40 Evaluation Information Evaluation Date 03/30/25 Precautions Precautions Cardiac, 3 month heart monitor abdominal binder to support Blood Pressure prn cortical blindness Beta joe PT-OP-B Current Condition Start: 03/31/25 12:38 Freq: Status: Active Protocol: Document 04/26/25 13:06 KW (Rec: 04/26/25 13:47 KW Laptop) Current Condition History of Current Condition Onset Date 02/22/2025 Current Complaints balance deficits, vision impairment, cognitive function , cardiac status History of Current patient suffered [place] 02/22/25, bystander CPR by RN, Condition underwent 3 stents, left ADA, sustained anoxic brain injury, cortical blindness. currently wearing a site monitor for 3 months, attending cardiac rehab, OT, Speech. Underwent 3 of 4 weeks of inpatient rehab stay at [facility]. He has since removed home with his supportive , Theresa. Supportive family in the area. 2 steps to enter 1 story home. PMHx: significant for total hip replacement, arthritis, depression, DM II PT-OP-C Subjective Start: 03/31/25 12:38 Freq: Status: Active Protocol: Document 05/04/25 13:08 KW (Rec: 05/04/25 13:14 KW Laptop) OP-PT Subjective Patient Comments Patient Comments had a fall [place] minor anilaes was able to watch mar[place] game on a bigger screen PT-OP-D Balance Start: 03/31/25 12:38 Freq: Status: Active Protocol: Document 04/26/25 13:06 KW (Rec: 04/26/25 13:47 KW Laptop) Erazo Balance Assessment Evaluation Sitting to Standing Independent w/Hands Ability Unsupported Stance Safely- 2 minutes Sitting Unsupported, Safely- 2 minutes Feet on Floor Standing to Sitting Safely, Minimal Hand Use Ability Transfer Ability Safely, Hand Use Unsupported Stance- Safely, 10 seconds Eyes Closed Unsupported Stance- Independent, <30 seconds Eyes Open Reaching Forward Safely, 5 inches Standing Pick- Up Object From Supervision Floor Look Behind Shoulder Shifts Weight Unilateral - Standing Turning 360 Degrees Turns slowly, but safely Unsupported Stance, 4 Steps w/Supervision Alternating Feet on Stair Unsupported Tandem Small Step- 30 seconds Stance Unilateral Leg Lifts Leg/Unable to Hold Stance Total Score Erazo Total Score ( 40 out of 56 points) Erazo Impairment 40 to 59% Impaired (Score 23-33) Rating PT-OP-E Functional Tests Start: 03/31/25 12:38 Freq: Status: Active Protocol: Document 04/26/25 13:06 KW (Rec: 04/26/25 13:47 KW Laptop) Functional Tests 6 Minute Walk Test Distance 600 Device Used none PT-OP-F Manual Assessment Start: 03/31/25 12:38 Freq: Status: Active Protocol: Document 03/30/25 12:39 KW (Rec: 03/31/25 13:01 KW Laptop) Manual Assessments Soft Tissue Assessment Soft Tissue Mobility NT Assessment Joint Mobility Assessment Joint Mobility WNL x 4 Assessment PT-OP-G Mobility & Gait Start: 03/31/25 12:38 Freq: Status: Active Protocol: Document 04/26/25 13:06 KW (Rec: 04/26/25 13:47 KW Laptop) OP Mobility Evaluation Bed Mobility Rolling Indep Supine to and from independent Sit Transfers Sit to Stand independent Bed to Chair independent Transfers Car Transfers independent Floor Transfers SBA Functional Movements Lifting and Carrying 10 LB sit to stand from chair Squats SBA Running Assessment NA due to cardiac precautions OP Gait Assessment Gait Gait Assistance Independent Required: Distance (Feet) 1,000 Assistive Devices Assistive Device None Gait Deviations General Gait Pattern Decreased Feet Clearance Factors Limiting Gait Function Factors Limiting Decreased Activity Tolerance,Poor Balance Gait Function Comments Gait Comments vision status significant limitation, CGA for curbs, uneven terrain Stair Climbing Evaluation Evaluation Level of Assist On Standby Assistance,Contact Guard Assistance Stairs PT-OP-H Neuro Start: 03/31/25 12:38 Freq: Status: Active Protocol: Document 04/26/25 13:06 KW (Rec: 04/26/25 13:47 KW Laptop) Muscle Tone Tone Assessment UE Flexor Tone Normal Description Extensor Tone Normal Description Muscle Tone Comments Normal B LE as well Vital Signs Oxygen Pulse Oximetry at 100 Rest (%) (95-100 %) Oxygen Delivery Room Air Method PT-OP-J Posture/Palpation/Skin Start: 03/31/25 12:38 Freq: Status: Active Protocol: Document 03/30/25 12:39 KW (Rec: 03/31/25 13:01 KW Laptop) Posture Evaluation Comments Posture Comments WNL noted low tone, facial, new mouth open breathing pattern PT-OP-M Strength Start: 03/31/25 12:38 Freq: Status: Active Protocol: Document 04/26/25 13:06 KW (Rec: 04/26/25 13:47 KW Laptop) Hip Strength Hip Manual Muscle Testing Left Flexion (L2) 4 Good Extension (S1) 4 Good Abduction 4 Good Adduction 4 Good External Rotation 4 Good Internal Rotation 4 Good Comments Right LE as well PT-OP-Q Treatments Start: 03/31/25 12:38 Freq: Status: Active Protocol: Document 05/04/25 13:08 KW (Rec: 05/04/25 13:14 KW Laptop) Cardio Equipment Recumbent Stepper (Sci-Fit) Duration (Minutes) 8 Resistance 5 Other RPE, talk test 6/10 Gym Equipment Shuttle Recovery Squats Details B squats 100#, single leg 75# 37# jumps Reps/Time 2 x 10 each Shuttle Balance red Details wt shifting R/L L/R AP/ML directions Reps/Duration 6 min Therapeutic Ball I Y T Comments Prone over ball I Y T 1 Lb wt seated Exercise Details seated on red ball Comments B UE bands PNF patterns D1 D2 B UE extension x 15 each, coordinated breathing patterns Sport Cord walk outs Exercise Details AP/ML walk outs with cord at waist, Reps/Duration black with orange x 4 directions Therapeutic Exercises Prone Exercises plank Prone Exercise Name plank on treatment table Reps/Minutes 2 x 30 sec Sidelying Exercises side plank Sidelying Exercise sidelying hip adduction, side plank Name Side bilateral Comments x 10 each, coordinated breathing Sitting Exercises sit to stand Sitting Exercise sit to stand, without use of hands, holding 10 Lb Name Reps/Minutes x 10 Standing Exercises gastroc stretch Standing Exercise B gastroc stretch with MORENA wedge Name Other Exercises BOSU Other Exercise Name rapid alternating steps Side bilateral agility ladder Other Exercise Name 5 sequences Side bilateral band walks Other Exercise Name band walks Side bilateral Equipment Used blue band Comments 10 Gait Training Gait Activity stairs Description grand stair case in lobby Comments cues for pacing, pursed lip breathing and foot placement Neuro Re-Education Treatment Balance Activities BOSU Details step ups, AP, ML Comments x 10 each working into more rapid movements hurdles Details stepping over anterior/lateral on BOSU HEP corner balance Details // bars. BOSU, 4 mat wt shift, head turns Self-Care/Home Management Treatment Education Patient Education Body Mechanics,Fall Risk,Home Exercise Program,Joint Protection,Posture,Safety Other Education discussion initiated regarding spreading out PT visits to maximize since so compliant at home information given for home inside sales trainer once PT is complete PT-OP-T Assessment and Plan Start: 03/31/25 12:38 Freq: Status: Active Protocol: Document 05/04/25 13:08 KW (Rec: 05/04/25 13:14 KW Laptop) Physical Therapy Assessment Rehab Potential Rehabilitation Excellent Potential Evaluation Complexity Number of Personal 3 or More Factors/ Comorbidities Number of Body 4 or More Systems Impaired Clinical Evolving Presentation at Evaluation Impairments Impairments Balance,Functional Activities,Functional Mobility,Gait Other Concerns Fall Risk yes Goals Four Impairment impaired CORE strength Short Term Goal ([facility] able to hold plank 1 min ) STG Duration 6 weeks Three Impairment decreased LE strength Short Term Goal ([facility] patient with improved LE strength 4+, able to bridge, ) participate in leg press - progressing well STG Duration 6 weeks Two Impairment impaired gait Short Term Goal ([facility] patient ambulates with trekking pole outdoors, SBA - ) MET STG Duration 6 weeks One Impairment Lack of HEP Short Term Goal ([facility] patient and family demonstrate indep HEP balance in ) corner 10 min daily - MET Progress Towards Goals Progress Towards Progressing Toward Goals Goals Assessment Summary Assessment fall is concerning, combination of vision, impulsive and lack of awareness Physical Therapy Plan Frequency and Duration Frequency of 2x/Week Treatment Plan of Care Start 03/30/25 Date Plan of Care End 06/30/25 Date Therapeutic Interventions Therapeutic Balance Training,Gait Training,Home Exercise Program, Interventions Manual Therapy,Neuromuscular Re-education,Patient/ Caregiver Education,Self-Care/Home Management, Therapeutic Activities,Therapeutic Exercises Modalities Cold Pack/Ice Massage,Electric Stimulation,Hot Packs, Ultrasound Next Visit Focus/Plan Next Note Type Treatment Note Next Visit Plan nu step warm up with monitoring pre post vitals, introduce RPE scale advancing balance training LE shuttle HEP instruction: bridging, clamshells, UE band pulls corner balance
--- NOTE | 2025-05-09 10:23 | PT.OTN ---
Addendum entered and electronically signed by Denice Parker 05/09/25 10:57: 11th visit this session Addendum entered and electronically signed by Denice Parker 05/09/25 10:54: 10th visit Original Note: Current Diagnoses Cortical blindness, unspecified side of brain (05/09/25) Severe hypoxic ischemic encephalopathy [HIE] (05/09/25) Other reduced mobility (05/09/25) Other specified health status (05/09/25) Physical Therapy Treatment Note PT-OP-A Visit Information Start: 03/31/25 12:38 Freq: Status: Active Protocol: Document 05/09/25 08:38 AB (Rec: 05/09/25 10:04 AB [id number]) Out-Patient Physical Therapy Visit Information Visit Information Visit Type Treatment Note Visit Note BP L UE BP 94/58 start of session seated, standing 101 /64 HR 55 start of session. Post sit to stand with band and 10 lb BP 103/60 HR 51 O2 sat 100% O2 sat 94-99% start of session Access Code: [email or web address] Visit Start Time 09:02 Visit Stop Time 10:48 Visit Number (PN 06/03/2025) Number of FRONT OFFICE AGENT Visits 1 PT-OP-B Current Condition Start: 03/31/25 12:38 Freq: Status: Active Protocol: Document 04/26/25 13:06 KW (Rec: 04/26/25 13:47 KW Laptop) Current Condition History of Current Condition Onset Date 02/22/2025 Current Complaints balance deficits, vision impairment, cognitive function , cardiac status History of Current patient suffered RI 02/22/25, bystander CPR by RN, Condition underwent 3 stents, left ADA, sustained anoxic brain injury, cortical blindness. 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 Underwent 3 of 4 weeks of inpatient rehab stay at [facility]. He has since removed home with his supportive , Theresa. Supportive family in the area. 2 steps to enter 1 story home. PMHx: significant for total hip replacement, arthritis, depression, DM II PT-OP-C Subjective Start: 03/31/25 12:38 Freq: Status: Active Protocol: Document 05/09/25 08:38 AB (Rec: 05/09/25 10:04 AB [id number]) OP-PT Subjective Patient Comments Patient Comments Patient reports having no falls since previous session. Patient reports having no pain start of session. Patient reports he went to the [place] game over the weekend, Patient reports no difficulty at game ambulation in stands without device, but did hold patient's hand. SLS 11 sec L LE 15+ R LE without UE use, noted LOB within 2 sec with head turns. PT-OP-D Balance Start: 03/31/25 12:38 Freq: Status: Active Protocol: Document 04/26/25 13:06 KW (Rec: 04/26/25 13:47 KW Laptop) Erazo Balance Assessment Evaluation Sitting to Standing Independent w/Hands Ability Unsupported Stance Safely- 2 minutes Sitting Unsupported, Safely- 2 minutes Feet on Floor Standing to Sitting Safely, Minimal Hand Use Ability Transfer Ability Safely, Hand Use Unsupported Stance- Safely, 10 seconds Eyes Closed Unsupported Stance- Independent, <30 seconds Eyes Open Reaching Forward Safely, 5 inches Standing Pick- Up Object From Supervision Floor Look Behind Shoulder Shifts Weight Unilateral - Standing Turning 360 Degrees Turns slowly, but safely Unsupported Stance, 4 Steps w/Supervision Alternating Feet on Stair Unsupported Tandem Small Step- 30 seconds Stance Unilateral Leg Lifts Leg/Unable to Hold Stance Total Score Erazo Total Score ( 40 out of 56 points) Erazo Impairment 40 to 59% Impaired (Score 23-33) Rating PT-OP-E Functional Tests Start: 03/31/25 12:38 Freq: Status: Active Protocol: Document 04/26/25 13:06 KW (Rec: 04/26/25 13:47 KW Laptop) Functional Tests 6 Minute Walk Test Distance 600 Device Used none PT-OP-F Manual Assessment Start: 03/31/25 12:38 Freq: Status: Active Protocol: Document 03/30/25 12:39 KW (Rec: 03/31/25 13:01 KW Laptop) Manual Assessments Soft Tissue Assessment Soft Tissue Mobility NT Assessment Joint Mobility Assessment Joint Mobility WNL x 4 Assessment PT-OP-G Mobility & Gait Start: 03/31/25 12:38 Freq: Status: Active Protocol: Document 04/26/25 13:06 KW (Rec: 04/26/25 13:47 KW Laptop) OP Mobility Evaluation Bed Mobility Rolling Indep Supine to and from independent Sit Transfers Sit to Stand independent Bed to Chair independent Transfers Car Transfers independent Floor Transfers SBA Functional Movements Lifting and Carrying 10 LB sit to stand from chair Squats SBA Running Assessment NA due to cardiac precautions OP Gait Assessment Gait Gait Assistance Independent Required: Distance (Feet) 1,000 Assistive Devices Assistive Device None Gait Deviations General Gait Pattern Decreased Feet Clearance Factors Limiting Gait Function Factors Limiting Decreased Activity Tolerance,Poor Balance Gait Function Comments Gait Comments vision status significant limitation, CGA for curbs, uneven terrain Stair Climbing Evaluation Evaluation Level of Assist On Standby Assistance,Contact Guard Assistance Stairs PT-OP-H Neuro Start: 03/31/25 12:38 Freq: Status: Active Protocol: Document 04/26/25 13:06 KW (Rec: 04/26/25 13:47 KW Laptop) Muscle Tone Tone Assessment UE Flexor Tone Normal Description Extensor Tone Normal Description Muscle Tone Comments Normal B LE as well Vital Signs Oxygen Pulse Oximetry at 100 Rest (%) (95-100 %) Oxygen Delivery Room Air Method PT-OP-J Posture/Palpation/Skin Start: 03/31/25 12:38 Freq: Status: Active Protocol: Document 03/30/25 12:39 KW (Rec: 03/31/25 13:01 KW Laptop) Posture Evaluation Comments Posture Comments WNL noted low tone, facial, new mouth open breathing pattern PT-OP-M Strength Start: 03/31/25 12:38 Freq: Status: Active Protocol: Document 04/26/25 13:06 KW (Rec: 04/26/25 13:47 KW Laptop) Hip Strength Hip Manual Muscle Testing Left Flexion (L2) 4 Good Extension (S1) 4 Good Abduction 4 Good Adduction 4 Good External Rotation 4 Good Internal Rotation 4 Good Comments Right LE as well PT-OP-Q Treatments Start: 03/31/25 12:38 Freq: Status: Active Protocol: Document 05/09/25 08:38 AB (Rec: 05/09/25 10:04 AB [id number]) Gym Equipment Shuttle Balance red Details normal WALDEMAR Reps/Duration with and without UE use finger tip support intermittently Comments CGA occ head turns 5 min Therapeutic Exercises Sitting Exercises seated hip abd with band Side bilateral Resistance level 4 band Reps/Minutes one min X 1 Comments Verbal and visual cues sit to stand Sitting Exercise sit to stand, without use of hands, holding 10 Lb Name Side bilateral Resistance level 4 band above knees Equipment Used HEP Reps/Minutes 2 X 10 Comments VC buttocks back Standing Exercises stepping with band Standing Exercise 1. lateral 2 retro Name Reps/Minutes 1. X 3 each direction 10 feet, 2. 10 feet X 4 Comments CGA for retro Vc to avoid toe out for lat Other Exercises Foam Other Exercise Name Romberg, tandem Reps/Minutes eyes closed with head turns Comments inc ue use with head turns tandem stepping with head turns Reps/Minutes 10 feet X 6 Comments CGA with UE use as needed for LOB PT-OP-T Assessment and Plan Start: 03/31/25 12:38 Freq: Status: Active Protocol: Document 05/09/25 08:38 AB (Rec: 05/09/25 10:04 AB [id number]) Physical Therapy Assessment Goals Four Impairment impaired CORE strength Short Term Goal (STG able to hold plank 1 min ) STG Duration 6 weeks Three Impairment decreased LE strength Short Term Goal (STG patient with improved LE strength 4+, able to bridge, ) participate in leg press - progressing well STG Duration 6 weeks Two Impairment impaired gait Short Term Goal (STG patient ambulates with trekking pole outdoors, SBA - ) MET STG Duration 6 weeks One Impairment Lack of HEP Short Term Goal (STG patient and family demonstrate indep HEP balance in ) corner 10 min daily - MET Assessment Summary Assessment Inc LOB/ assist required with head turns. Physical Therapy Plan Frequency and Duration Frequency of 2x/Week Treatment Plan of Care Start 03/30/25 Date Plan of Care End 06/30/25 Date Next Visit Focus/Plan Next Note Type Treatment Note Next Visit Plan nu step warm up with monitoring pre post vitals, introduce RPE scale advancing balance training LE shuttle HEP instruction: bridging, clamshells, UE band pulls corner balance, Possibly Heel raise next session
--- NOTE | 2025-05-16 09:48 | PT.OTN ---
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 Post sit to stand with band and 10 lb BP 103/60 HR 51 O2 sat 100% O2 sat 94-99% start of session Access Code: [email or web address] Visit Start Time 09:08 Visit Stop Time 09:48 Visit Number 11 Number of RADIO COMMENTATOR Visits 2 Progress Note Due 06/03/25 PT-OP-B Current Condition Start: 03/31/25 12:38 Freq: Status: Active Protocol: Document 04/26/25 13:06 KW (Rec: 04/26/25 13:47 KW Laptop) Current Condition History of Current Condition Onset Date 02/22/2025 Current Complaints balance deficits, vision impairment, cognitive function , cardiac status History of Current patient suffered [place] 02/22/25, bystander CPR by RN, Condition underwent 3 stents, left ADA, sustained anoxic brain injury, cortical blindness. 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 Underwent 3 of 4 weeks of inpatient rehab stay at [facility]. He has since removed home with his supportive , Theresa. Supportive family in the area. 2 steps to enter 1 story home. PMHx: significant for total hip replacement, arthritis, depression, DM II PT-OP-C Subjective Start: 03/31/25 12:38 Freq: Status: Active Protocol: Document 05/16/25 09:08 SP (Rec: 05/16/25 09:51 SP [id number]) OP-PT Subjective Patient Comments Patient Comments Pt reports doing well, compliant with HEP. PT-OP-D Balance Start: 03/31/25 12:38 Freq: Status: Active Protocol: Document 04/26/25 13:06 KW (Rec: 04/26/25 13:47 KW Laptop) Erazo Balance Assessment Evaluation Sitting to Standing Independent w/Hands Ability Unsupported Stance Safely- 2 minutes Sitting Unsupported, Safely- 2 minutes Feet on Floor Standing to Sitting Safely, Minimal Hand Use Ability Transfer Ability Safely, Hand Use Unsupported Stance- Safely, 10 seconds Eyes Closed Unsupported Stance- Independent, <30 seconds Eyes Open Reaching Forward Safely, 5 inches Standing Pick- Up Object From Supervision Floor Look Behind Shoulder Shifts Weight Unilateral - Standing Turning 360 Degrees Turns slowly, but safely Unsupported Stance, 4 Steps w/Supervision Alternating Feet on Stair Unsupported Tandem Small Step- 30 seconds Stance Unilateral Leg Lifts Leg/Unable to Hold Stance Total Score Erazo Total Score ( 40 out of 56 points) Erazo Impairment 40 to 59% Impaired (Score 23-33) Rating PT-OP-E Functional Tests Start: 03/31/25 12:38 Freq: Status: Active Protocol: Document 04/26/25 13:06 KW (Rec: 04/26/25 13:47 KW Laptop) Functional Tests 6 Minute Walk Test Distance 600 Device Used none PT-OP-F Manual Assessment Start: 03/31/25 12:38 Freq: Status: Active Protocol: Document 03/30/25 12:39 KW (Rec: 03/31/25 13:01 KW Laptop) Manual Assessments Soft Tissue Assessment Soft Tissue Mobility NT Assessment Joint Mobility Assessment Joint Mobility WNL x 4 Assessment PT-OP-G Mobility & Gait Start: 03/31/25 12:38 Freq: Status: Active Protocol: Document 04/26/25 13:06 KW (Rec: 04/26/25 13:47 KW Laptop) OP Mobility Evaluation Bed Mobility Rolling Indep Supine to and from independent Sit Transfers Sit to Stand independent Bed to Chair independent Transfers Car Transfers independent Floor Transfers SBA Functional Movements Lifting and Carrying 10 LB sit to stand from chair Squats SBA Running Assessment NA due to cardiac precautions OP Gait Assessment Gait Gait Assistance Independent Required: Distance (Feet) 1,000 Assistive Devices Assistive Device None Gait Deviations General Gait Pattern Decreased Feet Clearance Factors Limiting Gait Function Factors Limiting Decreased Activity Tolerance,Poor Balance Gait Function Comments Gait Comments vision status significant limitation, CGA for curbs, uneven terrain Stair Climbing Evaluation Evaluation Level of Assist On Standby Assistance,Contact Guard Assistance Stairs PT-OP-H Neuro Start: 03/31/25 12:38 Freq: Status: Active Protocol: Document 04/26/25 13:06 KW (Rec: 04/26/25 13:47 KW Laptop) Muscle Tone Tone Assessment UE Flexor Tone Normal Description Extensor Tone Normal Description Muscle Tone Comments Normal B LE as well Vital Signs Oxygen Pulse Oximetry at 100 Rest (%) (95-100 %) Oxygen Delivery Room Air Method PT-OP-J Posture/Palpation/Skin Start: 03/31/25 12:38 Freq: Status: Active Protocol: Document 03/30/25 12:39 KW (Rec: 03/31/25 13:01 KW Laptop) Posture Evaluation Comments Posture Comments WNL noted low tone, facial, new mouth open breathing pattern PT-OP-M Strength Start: 03/31/25 12:38 Freq: Status: Active Protocol: Document 04/26/25 13:06 KW (Rec: 04/26/25 13:47 KW Laptop) Hip Strength Hip Manual Muscle Testing Left Flexion (L2) 4 Good Extension (S1) 4 Good Abduction 4 Good Adduction 4 Good External Rotation 4 Good Internal Rotation 4 Good Comments Right LE as well PT-OP-Q Treatments Start: 03/31/25 12:38 Freq: Status: Active Protocol: Document 05/16/25 09:08 SP (Rec: 05/16/25 09:51 SP [id number]) Gym Equipment Sport Cord walk outs Exercise Details f/b/R/L walk outs, step up/back down 6+foam on top f/b , Lat salud, STS Reps/Duration Red Comments cord at waist STS mesh chair +foam top, foam under feet cued eccentric control, softer stepping eccentric heel strike Therapeutic Exercises Prone Exercises Bird Dog Prone Exercise Name modified incline on table (long lever arm BUE & BLEs) Reps/Minutes 5 reps each side alternating Comments cued longated, TA draw in support back plank Prone Exercise Name plank on treatment table (forearms/feet) Equipment Used *good core/back alignment Reps/Minutes 35 sec x2 Comments tactile cues protraction/ dec winging- challenge scap weakness Sitting Exercises seated hip abd with band Side bilateral Resistance level 4 band Reps/Minutes one min X 1 then 15 reps Comments Verbal and visual cues slow pacing ecc control sit to stand Sitting Exercise sit to stand,arms across chest holding 10 Lb Name Side bilateral Resistance level 4 band above knees, 10 lbs wt in hands/arms Equipment Used mesh chair Reps/Minutes 2 X 10 Comments VC buttocks back, slower eccentric ful to seat Standing Exercises stepping with band Standing Exercise 1. lateral 2 retro Name Resistance TB #3 at ankles Equipment Used inside //bars but not needed Reps/Minutes 3 laps each direction Comments SBA, occasional cues for DF foot clearance, slower pacing- good stability Neuro Re-Education Treatment Balance Activities Dynamic Stepping Details HTs metronome 98bpm- inPT Comments good challenge 101good pace but unable maintain HTs withoutslowing down>98bm better small slow HTs, cues for maintain WALDEMAR safety PT-OP-T Assessment and Plan Start: 03/31/25 12:38 Freq: Status: Active Protocol: Document 05/16/25 09:08 SP (Rec: 05/16/25 09:51 SP [id number]) Physical Therapy Assessment Goals Four Impairment impaired CORE strength Short Term Goal (STG able to hold plank 1 min ) STG Duration 6 weeks Three Impairment decreased LE strength Short Term Goal (STG patient with improved LE strength 4+, able to bridge, ) participate in leg press - progressing well STG Duration 6 weeks Two Impairment impaired gait Short Term Goal (STG patient ambulates with trekking pole outdoors, SBA - ) MET STG Duration 6 weeks One Impairment Lack of HEP Short Term Goal (STG patient and family demonstrate indep HEP balance in ) corner 10 min daily - MET Assessment Summary Assessment Pt good feedback progressed challenge dynamic balance activities, improved self corrections stabililty with cuing instructions posture, slower pacing, foot clearance, Physical Therapy Plan Frequency and Duration Frequency of 2x/Week Treatment Plan of Care Start 03/30/25 Date Plan of Care End 06/30/25 Date Therapeutic Interventions Therapeutic Balance Training,Gait Training,Home Exercise Program, Interventions Manual Therapy,Neuromuscular Re-education,Patient/ Caregiver Education,Self-Care/Home Management, Therapeutic Activities,Therapeutic Exercises Modalities Cold Pack/Ice Massage,Electric Stimulation,Hot Packs, Ultrasound Next Visit Focus/Plan Next Note Type Treatment Note Next Visit Plan nu step warm up with monitoring pre post vitals, introduce RPE scale advancing balance training LE shuttle HEP instruction: bridging, clamshells, UE band pulls corner balance, Possibly Heel raise next session
--- NOTE | 2025-05-31 13:59 | PT.OPPN ---
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] (05/31/25) Other reduced mobility (05/31/25) Other specified health status (05/31/25) Physical Therapy Progress Note PT OP: Balance, Vestibular, Neuro Start: 05/31/25 13:14 Freq: Status: Active Protocol: Document 05/31/25 13:14 KW (Rec: 05/31/25 13:58 KW Laptop) Out-Patient Physical Therapy Visit Information Visit Information Visit Type Progress Note Visit Note O2 100% HR 84 after shuttle BP Visit Start Time 13:00 Visit Stop Time 13:40 Visit Number 09/18 Progress Note Due 06/30/25 Precautions Precautions fall risk cardiac risk cortical blindness OP-PT Subjective Patient Comments Patient Comments had a fall getting off of tractor at home, struck head - went to ED. 5 henry in back of head. No LOC DC of heart monitor/defibulator as Ejection fraction is 45% started cardiac rehab in [facility]. insurance coverage is separate from OT/PT went to [employer] - had a good time but couldn't see score board. Cardio Equipment Bicycle (Upright) Duration (Minutes) 5 Gym Equipment Shuttle Recovery Squats Details B squats 100#, single leg 75# 37# jumps Reps/Time 2 x 10 each Shuttle Balance red Details normal WALDEMAR Reps/Duration with and without UE use finger tip support intermittently Comments CGA occ head turns 5 min Therapeutic Ball I Y T Comments Prone over ball I Y T 1 Lb wt seated Exercise Details seated on red ball Comments B UE bands PNF patterns D1 D2 B UE extension x 15 each, coordinated breathing patterns Sport Cord walk outs Exercise Details f/b/R/L walk outs, step up/back down 6+foam on top f/b , Lat salud, STS Reps/Duration orange plus black Comments cord at waist STS mesh chair +foam top, foam under feet cued eccentric control, softer stepping eccentric heel strike Therapeutic Exercises Prone Exercises Bird Dog Prone Exercise Name modified incline on table (long lever arm BUE & BLEs) Reps/Minutes 5 reps each side alternating Comments cued longated, TA draw in support back plank Prone Exercise Name plank on treatment table (forearms/feet) Equipment Used *good core/back alignment Reps/Minutes 35 sec x2 Comments tactile cues protraction/ dec winging- challenge scap weakness Sidelying Exercises side plank Sidelying Exercise sidelying hip adduction, side plank Name Side bilateral Comments x 10 each, coordinated breathing Sitting Exercises seated hip abd with band Side bilateral Resistance level 4 band Reps/Minutes one min X 1 then 15 reps Comments Verbal and visual cues slow pacing ecc control sit to stand Sitting Exercise sit to stand,arms across chest holding 10 Lb Name Side bilateral Resistance level 4 band above knees, 10 lbs wt in hands/arms Equipment Used mesh chair Reps/Minutes 2 X 10 Comments VC buttocks back, slower eccentric ful to seat Standing Exercises stepping with band Standing Exercise 1. lateral 2 retro Name Resistance TB #3 at ankles Equipment Used inside //bars but not needed Reps/Minutes 3 laps each direction Comments SBA, occasional cues for DF foot clearance, slower pacing- good stability gastroc stretch Standing Exercise B gastroc stretch with MORENA wedge Name Other Exercises Foam Other Exercise Name Romberg, tandem Reps/Minutes eyes closed with head turns Comments inc ue use with head turns tandem stepping with head turns Reps/Minutes 10 feet X 6 Comments CGA with UE use as needed for LOB BOSU Other Exercise Name rapid alternating steps Side bilateral agility ladder Other Exercise Name 5 sequences Side bilateral Neuro Re-Education Treatment Balance Activities Dynamic Stepping Details HTs metronome 98bpm- inPT Comments good challenge 101good pace but unable maintain HTs withoutslowing down>98bm better small slow HTs, cues for maintain WALDEMAR safety BOSU Details step ups, AP, ML Comments x 10 each working into more rapid movements hurdles Details stepping over anterior/lateral on BOSU HEP corner balance Details // bars. BOSU, 4 mat wt shift, head turns Self-Care/Home Management Treatment Education Patient Education Body Mechanics,Fall Risk,Home Exercise Program,Joint Protection,Posture,Safety Other Education discussion initiated regarding spreading out PT visits to maximize since so compliant at home information given for home show dog trainer once PT is complete Physical Therapy Assessment Rehab Potential Rehabilitation Excellent Potential Impairments Impairments Balance,Functional Activities,Functional Mobility,Gait Other Concerns Fall Risk yes Goals Four Impairment impaired CORE strength Short Term Goal (STG able to hold plank 1 min - able to hold from knees ) STG Duration 6 weeks Three Impairment decreased LE strength Short Term Goal (STG patient with improved LE strength 4+, able to bridge, ) participate in leg press - progressing well but continues to require cues for breath work to avoid mid line abdominal weakness/early hernia STG Duration 6 weeks One Impairment Lack of HEP Short Term Goal (STG patient and family demonstrate indep HEP balance in ) corner 10 min daily - MET Assessment Summary Assessment concern regarding fall and striking head. starting cardiac rehab is excellent. Physical Therapy Plan Frequency and Duration Frequency of 2x/Week Treatment Plan of Care Start 03/30/25 Date Plan of Care End 06/30/25 Date Next Visit Focus/Plan Next Note Type Treatment Note Next Visit Plan advancing balance training LE shuttle HEP instruction: bridging, clamshells, UE band pulls corner balance
--- NOTE | 2025-06-13 13:23 | PT.OTN ---
Current Diagnoses Cortical blindness, unspecified side of brain (06/13/25) Severe hypoxic ischemic encephalopathy [HIE] (06/13/25) Other reduced mobility (06/13/25) Other specified health status (06/13/25) Physical Therapy Treatment Note PT OP: Balance, Vestibular, Neuro Start: 05/31/25 13:14 Freq: Status: Active Protocol: Document 06/13/25 13:16 KW (Rec: 06/13/25 13:23 KW Laptop) Out-Patient Physical Therapy Visit Information Visit Information Visit Type Treatment Note Visit Note O2 100% HR 70 BP 113/70 Visit Start Time 13:00 Visit Stop Time 13:40 Visit Number 13/15 Progress Note Due 06/30/25 Evaluation Information Evaluation Date 03/30/25 Precautions Precautions fall risk cardiac risk cortical blindness OP-PT Subjective Patient Comments Patient Comments henry are out of head cardiac rehab is very challenging Cardio Equipment Treadmill Duration (Minutes) 5 Speed 2.0 Incline 1.5 Other b hand held Gym Equipment Shuttle Recovery Squats Details B squats 100#, single leg 75# 37# jumps Reps/Time 2 x 10 each Shuttle Balance red Details tandem stance both directions Reps/Duration with and without UE use finger tip support intermittently Comments CGA occ head turns 5 min Therapeutic Ball I Y T Comments Prone over ball I Y T 2 Lb wt seated Exercise Details seated on red ball Comments B UE bands PNF patterns D1 D2 B UE extension x 15 each, coordinated breathing patterns Sport Cord walk outs Exercise Details f/b/R/L walk outs, step up/back down 6+foam on top f/b , Lat salud, STS Reps/Duration orange plus black Comments cord at waist STS mesh chair +foam top, foam under feet cued eccentric control, softer stepping eccentric heel strike Therapeutic Exercises Prone Exercises Bird Dog Prone Exercise Name modified incline on table (long lever arm BUE & BLEs) Reps/Minutes 5 reps each side alternating Comments cued longated, TA draw in support back plank Prone Exercise Name plank on treatment table (forearms/feet) Equipment Used *good core/back alignment Reps/Minutes 35 sec x2 Comments tactile cues protraction/ dec winging- challenge scap weakness Sidelying Exercises side plank Sidelying Exercise sidelying hip adduction, side plank Name Side bilateral Comments x 10 each, coordinated breathing Sitting Exercises seated hip abd with band Side bilateral Resistance level 4 band Reps/Minutes one min X 1 then 15 reps Comments Verbal and visual cues slow pacing ecc control sit to stand Sitting Exercise sit to stand,arms across chest holding 10 Lb Name Side bilateral Resistance level 4 band above knees, 10 lbs wt in hands/arms Equipment Used mesh chair Reps/Minutes 2 X 10 Comments VC buttocks back, slower eccentric ful to seat Standing Exercises stepping with band Standing Exercise 1. lateral 2 retro Name Resistance TB #3 at ankles Equipment Used inside //bars but not needed Reps/Minutes 3 laps each direction Comments SBA, occasional cues for DF foot clearance, slower pacing- good stability gastroc stretch Standing Exercise B gastroc stretch with MORENA wedge Name Other Exercises Foam Other Exercise Name Romberg, tandem Reps/Minutes eyes closed with head turns Comments inc ue use with head turns tandem stepping with head turns Reps/Minutes 10 feet X 6 Comments CGA with UE use as needed for LOB BOSU Other Exercise Name rapid alternating steps Side bilateral agility ladder Other Exercise Name 5 sequences Side bilateral Physical Therapy Assessment Goals Four Impairment impaired CORE strength Short Term Goal (STG able to hold plank 1 min - able to hold from knees ) STG Duration 6 weeks Three Impairment decreased LE strength Short Term Goal (STG patient with improved LE strength 4+, able to bridge, ) participate in leg press - progressing well but continues to require cues for breath work to avoid mid line abdominal weakness/early hernia STG Duration 6 weeks One Impairment Lack of HEP Short Term Goal (STG patient and family demonstrate indep HEP balance in ) corner 10 min daily - MET Assessment Summary Assessment wants to get back to driving. Explained with DMV post TBI it is a rigorous course encouragement given for cardiac rehab will DC in 2 visits due to insurance restriction Physical Therapy Plan Frequency and Duration Frequency of Every Other Week Treatment Plan of Care Start 03/30/25 Date Plan of Care End 06/30/25 Date Next Visit Focus/Plan Next Note Type Treatment Note Next Visit Plan advancing balance training LE shuttle HEP instruction: bridging, clamshells, UE band pulls corner balance
--- NOTE | 2025-06-21 14:58 | PT.OPPN ---
Current Diagnoses Cortical blindness, unspecified side of brain (06/21/25) Severe hypoxic ischemic encephalopathy [HIE] (06/21/25) Other reduced mobility (06/21/25) Other specified health status (06/21/25) Physical Therapy Progress Note PT OP: Balance, Vestibular, Neuro Start: 05/31/25 13:14 Freq: Status: Active Protocol: Document 06/21/25 10:46 PRATEEK (Rec: 06/21/25 14:28 PRATEEK [id number]) Out-Patient Physical Therapy Visit Information Visit Information Visit Type Progress Note Visit Start Time 10:45 Visit Stop Time 11:30 Visit Number 14 Number of SHERIFF DETECTIVE Visits 0 Progress Note Due 07/21/25 Precautions Precautions fall risk cardiac risk cortical blindness OP-PT Subjective Patient Comments Patient Comments Patient reports his progress started slow and he is doing fine lately. He reports he is doing an independent exercise program every day including riding a stationary bike, stretching, balance exercises on [employer] ball and airex, 10# KB deadlifts. He reports his GROC is 70%. He notes improvement with walking, reading , stair negotiation. He reports the remaining 30% is made up of returning to driving and normal life. Therapeutic Exercises Sitting Exercises Hip abduction / adduction machine Sitting Exercise seated Name Side bilateral Resistance 60# Equipment Used machine Reps/Minutes 3x10 each way Comments - Knee extension machine Sitting Exercise seated Name Side bilateral Resistance 30# Equipment Used Knee extension machine Reps/Minutes 3x10 Comments - sit to stand Sitting Exercise sit to stand,arms across chest Name Side bilateral Equipment Used mesh chair Reps/Minutes 3x10 Comments VC buttocks back, slower eccentric ful to seat Physical Therapy Assessment Goals Four Impairment impaired CORE strength Short Term Goal (STG able to hold plank 1 min - able to hold from knees ) Met (06/21/25) STG Duration 6 weeks Three Impairment decreased LE strength Short Term Goal ([facility] patient with improved LE strength 4+, able to bridge, ) participate in leg press - progressing well but continues to require cues for breath work to avoid mid line abdominal weakness/early hernia Met - 06/21/2025 STG Duration 6 weeks One Impairment Lack of HEP Short Term Goal (STG patient and family demonstrate indep HEP balance in ) corner 10 min daily - MET Assessment Summary Assessment Patient presenting to PT after 13 visits for generalized weakness and debility. Patient has made improvements with his gait, gross LE strength, and general function around his home but has not yet returned to driving or completing normal activities. Patient has met his strength goals listed above and feels generally comfortable continuing his home program independently. Because of improvements noted above, patient will have one more formal PT session to review home program and discuss progressions for penitentiary management, then he will be discharged. Physical Therapy Plan Frequency and Duration Frequency of Every Other Week Treatment Plan of Care Start 03/30/25 Date Plan of Care End 06/30/25 Date Next Visit Focus/Plan Next Note Type Treatment Note Next Visit Plan Review home exercise program and discharge episode of care.
--- NOTE | 2025-06-27 10:41 | PT.OPDS ---
Current Diagnoses Cortical blindness, unspecified side of brain (06/27/25) Severe hypoxic ischemic encephalopathy [HIE] (06/27/25) Other reduced mobility (06/27/25) Other specified health status (06/27/25) Visit Care Team Role Provider Type Ata Carr MD Family Provider Physician Primary Care Provider Specialty: Family Practice Address: [address] [place], [address] Email: [email or web address] Sean Howard MD Attending Provider Non-Staff Referring Provider Specialty: Physical Medicine and Rehab Address: [address], [address], [place], [address] Email: Visit Number Visit Number Discharge Summary PT OP: Balance, Vestibular, Neuro Start: 05/31/25 13:14 Freq: Status: Active Protocol: Document 06/27/25 08:18 PRATEEK (Rec: 06/27/25 10:41 PRATEEK [id number]) Out-Patient Physical Therapy Visit Information Visit Information Visit Type Discharge Summary Visit Start Time 09:45 Visit Stop Time 10:30 Visit Number Number of GOLD NIB GRINDER Visits 0 Progress Note Due 07/21/25 Precautions Precautions fall risk cardiac risk cortical blindness OP-PT Subjective Patient Comments Patient Comments Patient reports he is comfortable with today being his last PT session. Therapeutic Exercises Sitting Exercises Hip abduction / adduction machine Sitting Exercise seated Name Side bilateral Resistance 70# Equipment Used machine Reps/Minutes 3x10 each way Comments - Knee extension machine Sitting Exercise seated Name Side bilateral Resistance 50# Equipment Used Knee extension machine Reps/Minutes 3x10 Comments - sit to stand Sitting Exercise Squat to chair Name Side bilateral Resistance up to 20# Equipment Used mesh chair Reps/Minutes 4x10 Comments VC buttocks back, slower eccentric ful to seat Standing Exercises Cable column row Side bilateral Resistance 30# Equipment Used cable column Reps/Minutes 3x10 each side Elevated pushups Side bilateral Equipment Used elevated table Reps/Minutes 2x10 Comments cues for shoulder position Split squats Side bilateral Equipment Used UE support on table Reps/Minutes 3x10 each side Physical Therapy Assessment Goals Four Impairment impaired CORE strength Short Term Goal (STG able to hold plank 1 min - able to hold from knees ) Met (06/21/25) STG Duration 6 weeks Three Impairment decreased LE strength Short Term Goal ([facility] patient with improved LE strength 4+, able to bridge, ) participate in leg press - progressing well but continues to require cues for breath work to avoid mid line abdominal weakness/early hernia Met - 06/21/2025 STG Duration 6 weeks One Impairment Lack of HEP Short Term Goal (STG patient and family demonstrate indep HEP balance in ) corner 10 min daily - MET Assessment Summary Assessment Treatment focused on reviewing home exercises and discussing continued management with group exercise sessions and cardiac rehab. Because of progress noted in previous sessions and patient confidence continuing progress independently, today will be his last formal PT session. Physical Therapy Plan Frequency and Duration Frequency of Every Other Week Treatment Plan of Care Start 03/30/25 Date Plan of Care End 06/30/25 Date Next Visit Focus/Plan Next Visit Plan N/A - patient to be discharged today.
--- NOTE | 2025-06-27 10:48 | PT.OTN ---
Current Diagnoses Cortical blindness, unspecified side of brain (06/27/25) Severe hypoxic ischemic encephalopathy [HIE] (06/27/25) Other reduced mobility (06/27/25) Other specified health status (06/27/25) Physical Therapy Treatment Note PT OP: Balance, Vestibular, Neuro Start: 05/31/25 13:14 Freq: Status: Active Protocol: Document 06/27/25 08:18 PRATEEK (Rec: 06/27/25 10:41 PRATEEK [id number]) Out-Patient Physical Therapy Visit Information Visit Information Visit Type Discharge Summary Visit Start Time 09:45 Visit Stop Time 10:30 Visit Number 15 Number of SPRAY RIG OPERATOR Visits 0 Progress Note Due 07/21/25 Precautions Precautions fall risk cardiac risk cortical blindness OP-PT Subjective Patient Comments Patient Comments Patient reports he is comfortable with today being his last PT session. Therapeutic Exercises Sitting Exercises Hip abduction / adduction machine Sitting Exercise seated Name Side bilateral Resistance 70# Equipment Used machine Reps/Minutes 3x10 each way Comments - Knee extension machine Sitting Exercise seated Name Side bilateral Resistance 50# Equipment Used Knee extension machine Reps/Minutes 3x10 Comments - sit to stand Sitting Exercise Squat to chair Name Side bilateral Resistance up to 20# Equipment Used mesh chair Reps/Minutes 4x10 Comments VC buttocks back, slower eccentric ful to seat Standing Exercises Cable column row Side bilateral Resistance 30# Equipment Used cable column Reps/Minutes 3x10 each side Elevated pushups Side bilateral Equipment Used elevated table Reps/Minutes 2x10 Comments cues for shoulder position Split squats Side bilateral Equipment Used UE support on table Reps/Minutes 3x10 each side Physical Therapy Assessment Goals Four Impairment impaired CORE strength Short Term Goal ([facility] able to hold plank 1 min - able to hold from knees ) Met (06/21/25) STG Duration 6 weeks Three Impairment decreased LE strength Short Term Goal ([facility] patient with improved LE strength 4+, able to bridge, ) participate in leg press - progressing well but continues to require cues for breath work to avoid mid line abdominal weakness/early hernia Met - 06/21/2025 STG Duration 6 weeks One Impairment Lack of HEP Short Term Goal ([facility] patient and family demonstrate indep HEP balance in ) corner 10 min daily - MET Assessment Summary Assessment Treatment focused on reviewing home exercises and discussing continued management with group exercise sessions and cardiac rehab. Because of progress noted in previous sessions and patient confidence continuing progress independently, today will be his last formal PT session. Physical Therapy Plan Frequency and Duration Frequency of Every Other Week Treatment Plan of Care Start 03/30/25 Date Plan of Care End 06/30/25 Date Next Visit Focus/Plan Next Visit Plan N/A - patient to be discharged today.
== END 2025-06-27 13:26 | disposition home or self-care (01) ==
LOC: PHYS 09:45
PROVIDERS: Family Provider Family Medicine; PCP Family Medicine; Referring Provider Physical Medicine & Rehabilitation; Visit Provider Physical Medicine & Rehabilitation
DX: P91.63 Severe hypoxic ischemic encephalopathy [HIE] (principal); H47.619 Cortical blindness, unspecified side of brain; Z74.09 Other reduced mobility; Z78.9 Other specified health status
CPT/HCPCS: 97110; 97112; 97163